=== PATIENT | male | born 1970 | race Caucasian/White ===

== ENCOUNTER 2016-07-16 02:37 | Inpatient (IN) | payer BC ==
[~2016-07-16] VITALS: Ht 180.3 cm; Wt 93.0 kg
--- NOTE | 2016-07-16 02:54 | ED.ADGEN ---
Adult General Chief Complaint Chief Complaint: ABDOMINAL PAIN HPI HPI Patient is a 45 year old and, history of hypertension, cholecystectomy, who presents to the emergency department with complaint of sudden onset of epigastric abdominal pain approximately 3 hours prior to arrival. Patient states that he had eaten a turkey sandwich around 5 hours ago, states that he began experiencing severe epigastric abdominal pain with nausea but no vomiting approximate 2 hours later. States that he tried antacids at home without relief , denies any chest pain, states he's had intermittent chest pain previously, states landed having shortness of breath, due to pain, denies any weakness in this or tingling, any similar to previously, any injuries. Patient states the pain is in the epigastric region and does radiate to his back. States that he does drink alcohol, but not on a regular basis, denies any drugs or cigarettes. Review of Systems Review of Systems Constitutional: Denies fever or chills. [] Eyes: Denies change in visual acuity. [] HENT: Denies nasal congestion or sore throat. [] Respiratory: Denies cough or shortness of breath. [] Cardiovascular: Denies chest pain or edema. [] GI: Epigastric abdominal pain with nausea, no vomiting, bloody stools or diarrhea. : Denies dysuria. [] Musculoskeletal: Denies back pain or joint pain. [] Integument: Denies rash. [] Neurologic: Denies headache, focal weakness or sensory changes. [] Endocrine: Denies polyuria or polydipsia. [] Lymphatic: Denies swollen glands. [] Psychiatric: Denies depression or anxiety. [] Current Medications Current Medications Current Medications Medications (Trade) Dose Ordered Sig/Cristiana Start Time Stop Time Status Last Admin Dose Admin Fentanyl Citrate 50 mcg 50 mcg PRN Q15MIN PRN 07/16/16 03:00 07/16/16 07:00 DC 07/16/16 05:18 50 MCG Info (Do NOT chart on this entry -- for MONITORING) 1 each PRN DAILY PRN 07/16/16 04:30 07/18/16 04:29 Iohexol (Omnipaque 300 Mg/ml) 75 ml 1X ONCE 07/16/16 04:30 07/16/16 04:31 DC 07/16/16 04:44 60 ML Ondansetron HCl (Zofran) 4 mg 1X ONCE 07/16/16 05:30 07/16/16 05:31 DC 07/16/16 05:18 4 MG Sodium Chloride (Iv Sodium Chloride 0.9% 1000ml Bag) 1,000 ml @ 1,000 mls/hr Q1H 07/16/16 03:30 07/16/16 04:29 DC 07/16/16 03:34 1,000 MLS/HR Allergies Allergies Allergies Coded Allergies Type Severity Reaction Last Updated Verified No Known Drug Allergies 07/16/16 No Physical Exam Physical Exam Constitutional: Well developed, well nourished, moderate distress secondary to abdominal pain, diaphoretic. HENT: Normocephalic, atraumatic, bilateral external ears normal, oropharynx moist, no oral exudates, nose normal. [] Eyes: PERRLA, EOMI, conjunctiva normal, no discharge. [] Neck: Normal range of motion, no tenderness, supple, no stridor. [] Cardiovascular:Heart rate regular rhythm, no murmur, S1, S2, no rubs or gallops. [] Lungs & Thorax: Bilateral breath sounds clear to auscultation, no wheezing, rhonchi, rales. No chest or crepitus or tenderness. [] Abdomen: Bowel sounds present patient with tenderness in the epigastric region, voluntary guarding, is grunting, and resisting examination no rigidity, positive for rebound in the epigastric region, no masses, no pulsatile masses. [ ] Skin: Warm, dry, no erythema, no rash. [] Back: No tenderness, no CVA tenderness. [] Extremities: No tenderness, no cyanosis, no clubbing, ROM intact, no edema. [] Neurologic: Alert and oriented X 3, normal motor function, normal sensory function, no focal deficits noted. [] Psychologic: Affect normal, judgement normal, mood normal. [] Current Patient Data Vital Signs Vital Signs Date Time Temp Pulse Resp B/P Pulse Ox O2 Delivery O2 Flow Rate FiO2 07/16/16 05:40 48 203/115 99 Room Air 07/16/16 05:18 20 07/16/16 02:37 97.8 97.8 Lab Values Laboratory Tests Test 07/16/16 03:30 07/16/16 04:00 White Blood Count 13.8x10^3/uL (4.0-11.0) H Red Blood Count 5.58x10^6/uL (4.30-5.70) Hemoglobin 16.8g/dL (13.0-17.5) Hematocrit 50.0% (39.0-53.0) Mean Corpuscular Volume 90fL (79-100) Mean Corpuscular Hemoglobin 30pg (25-35) Mean Corpuscular Hemoglobin Concent 34g/dL (31-37) Red Cell Distribution Width 13.0% (11.5-14.5) Platelet Count 219x10^3/uL (140-400) Neutrophils (%) (Auto) 86% (31-73) H Lymphocytes (%) (Auto) 9% (24-48) L Monocytes (%) (Auto) 4% (0-9) Eosinophils (%) (Auto) 0% (0-3) Basophils (%) (Auto) 1% (0-3) Neutrophils # (Auto) 11.9x10^3uL (1.8-7.7) H Lymphocytes # (Auto) 1.2x10^3/uL (1.0-4.8) Monocytes # (Auto) 0.6x10^3/uL (0.0-1.1) Eosinophils # (Auto) 0.0x10^3/uL (0.0-0.7) Basophils # (Auto) 0.1x10^3/uL (0.0-0.2) Segmented Neutrophils % 88% (35-66) H Band Neutrophils % 4% (0-9) Lymphocytes % 4% (24-48) L Monocytes % 4% (0-10) Platelet Estimate Adequate (ADEQUATE) Prothrombin Time 12.2SEC (11.7-14.0) Prothrombin Time INR 1.0 (0.8-1.1) PTT 22SEC (24-38) L Sodium Level 143mmol/L (136-145) Potassium Level 4.1mmol/L (3.5-5.1) Chloride Level 104mmol/L (98-107) Carbon Dioxide Level 25mmol/L (21-32) Anion Gap 14 (6-14) Blood Urea Nitrogen 10mg/dL (8-26) Creatinine 1.3mg/dL (0.7-1.3) Estimated GFR (Cockcroft-Gault) 59.4 BUN/Creatinine Ratio 8 (6-20) Glucose Level 167mg/dL (70-99) H Calcium Level 10.1mg/dL (8.5-10.1) Total Bilirubin 3.0mg/dL (0.2-1.0) H Aspartate Amino Transferase (AST) 282U/L (15-37) H Alanine Aminotransferase (ALT) 645U/L (16-63) H Alkaline Phosphatase 173U/L (46-116) H Troponin I Quantitative < 0.017ng/mL (0.000-0.055) Total Protein 8.3g/dL (6.4-8.2) H Albumin 5.0g/dL (3.4-5.0) Albumin/Globulin Ratio 1.5 (1.0-1.7) Lipase 296U/L (73-393) Urine Collection Type Unknown Urine Color Wirt Urine Clarity Cloudy Urine pH 6.5 Urine Specific [place] 1.025 Urine Protein Negativemg/dL (NEG-TRACE) Urine Glucose (UA) Negativemg/dL (NEG) Urine Ketones (Stick) 40mg/dL (NEG) Urine Blood Negative (NEG) Urine Nitrite Negative (NEG) Urine Bilirubin Small (NEG) Urine Urobilinogen Dipstick 2.0mg/dL (0.2 mg/dL) Urine Leukocyte Esterase Trace (NEG) Urine RBC Occ/HPF (0-2) Urine WBC Occ/HPF (0-4) Urine Squamous Epithelial Cells None/LPF Urine Amorphous Sediment Present/HPF Urine Bacteria 0/HPF (0-FEW) Urine Mucus Mod/LPF Urine Opiates Screen Neg (NEG) Urine Methadone Screen Neg (NEG) Urine Barbiturates Neg (NEG) Urine Phencyclidine Screen Neg (NEG) Urine Amphetamine/Methamphetamine Neg (NEG) Urine Benzodiazepines Screen Neg (NEG) Urine Cocaine Screen Neg (NEG) Urine Cannabinoids Screen Pos (NEG) Urine Ethyl Alcohol Neg (NEG) Laboratory Tests 07/16/16 03:30 Laboratory Tests 07/16/16 03:30 EKG EKG EC: Sinus bradycardia, heart rate 49 bpm, upright axis, QTC of 433, NH 150, QRS of 94, aside from bradycardia, no other abnormalities identified. As interpreted by me. No prior for comparison. [] Radiology/Procedures Radiology/Procedures [] [facility] [address] [place] [address] IMAGING REPORT Signed PATIENT: DUYEN MOCTEZUMA ACCOUNT: [id number] : 1970 LOCATION: ER AGE: 45 SEX: M EXAM STATUS: REG ER ORD. PHYSICIAN: ANNA BOONE DO REASON: upper abd pain x tonight; nausea PROCEDURE: ABD PELV W/ IV CONTRAST ONLY INDICATION: Abdomen pain. COMPARISON: None TECHNIQUE: Axial CT images obtained through the abdomen and pelvis. Intravenous contrast was utilized. One or more of the following individualized dose reduction techniques were utilized for this examination: 1. Automated exposure control; 2. Adjustment of the mA and/or kV according to patient size; 3. Use of iterative reconstruction technique. FINDINGS: Abdominal aorta not aneurysmal. Small hiatal hernia versus mild distension distal esophagus. Mild calcific atherosclerosis. Biliary ductal dilatation is seen post cholecystectomy. There may be some component of periportal edema. No peripancreatic edema. Spleen unremarkable. No hydronephrosis. No definite evidence of small bowel obstruction. Bladder unremarkable within limits of CT. Fat containing right inguinal hernia. There are couple of small sclerotic foci seen in the osseous structures including 1 centimeter focus in right iliac bone. Most commonly bone islands unless the patient has history of neoplasm. IMPRESSION: No dilated loops of bowel to suggest obstruction. There is dilation of the biliary tree. The patient is post cholecystectomy therefore this may be secondary to postcholecystectomy changes but this is more than typically seen. Would correlate with symptoms in the region and lab markers. A cause such is a distal stricture or stone is not excluded on this exam. If further information is desired a follow-up MRCP could be obtained to further evaluate. Intrahepatic bile duct dilation is seen although cannot exclude a portion of periportal edema. Electronically signed by: Dudley Frias (Jul 16, 2016 05:42:16) DICTATED and SIGNED BY: DUDLEY FRIAS MD DATE: 07/16/16 0542 CC: ANNA BOONE DO; NO PCP ~ Impressions: [facility] [address] [place] [address] IMAGING REPORT Signed PATIENT: DUYEN MOCTEZUMA ACCOUNT: [id number] : 1970 LOCATION: ER AGE: 45 SEX: M EXAM STATUS: REG ER ORD. PHYSICIAN: ANNA BOONE DO REASON: RUQ/epigastric pain s/p cholecystetomy PROCEDURE: ABDOMEN LTD INDICATION: Abdominal pain. COMPARISON: CT from same day TECHNIQUE: Transabdominal ultrasound images are obtained of the abdomen. FINDINGS: Post cholecystectomy Hepatic echogenicity is mildly elevated Common bile duct dilation is better seen on CT Pancreas not well seen IVC segmentally seen at liver. No right hydronephrosis. Right kidney is not well seen. IMPRESSION: The patient's biliary ductal dilatation is seen on this exam as well. Liver is mildly hyperechoic. This is a borderline finding but cannot exclude mild fatty infiltration. Electronically signed by: Dudley Frias (Jul 16, 2016 05:45:10) DICTATED and SIGNED BY: DUDLEY FRIAS MD DATE: 07/16/16 0545 CC: ANNA BOONE DO; NO PCP ~ Course & Med Decision Making Course & Med Decision Making Pertinent Labs and Imaging studies reviewed. (See chart for details) Patient status post cholecystectomy, CT of abdomen and pelvis obtained to further elucidate his symptoms, laboratory studies. Reveal biliary dilatation, with no evidence of obstruction or obvious retained stone. Laboratory studies reveal elevations of the LFTs, an elevated bilirubin area ultrasound ordered to further evaluate the area, with no new findings identified. On reevaluation patient is contained to experience significant abdominal discomfort after receiving multiple doses of narcotic medication. IV fluids also infusing. Patient is agreeable for admission to the hospital for further evaluation of his symptoms and consultation with GI. Admitted to the service of Dr. Sylvester , with bridging orders entered for consultation, nothing by mouth status, supportive management as stated, patient remained stable in the emergency department awaiting transfer to the floor. Dragon Disclaimer Dragon Disclaimer This electronic medical record was generated, in whole or in part, using a voice recognition dictation system. Departure Impression: Primary Impression: Abdominal pain Additional Impression: Elevated liver enzymes Disposition: ADMITTED INPATIENT Admitting Physician: Alessandro Sylvester Condition: IMPROVED Problem Qualifiers Primary Impression: Abdominal pain Abdominal location: upper abdomen, unspecified Qualified Code: R10.10 - Upper abdominal pain, unspecified ANNA BOONE DO Jul 16, 2016 02:54
[2016-07-16] MEDS ORDERED: IV NORMAL SALINE 1000ML BAG 1,000 ML IV SCH (03:30)
[2016-07-16] MEDS ORDERED: ONDANSETRON PF 4 MG/2 ML VIAL. IV ONE ×2 (03:30→05:30)
[2016-07-16] MEDS: FENTANYL PF 100 MCG/2 ML VIAL. IV PRN ×3 (03:34→05:18)
[2016-07-16 03:43] LABS: BASO # 0.1 x10^3/uL (0.0-0.2); BASO % 1 % (0-3); EOS % 0 % (0-3); HEMOGLOBIN 16.8 g/dL (13.0-17.5); LYMPH # 1.2 x10^3/uL (1.0-4.8); LYMPH % 9 % (24-48); MEAN CORPUSCULAR HEMOGLOBIN 30 pg (25-35); MEAN CORPUSCULAR HGB CONC 34 g/dL (31-37); MEAN CORPUSCULAR VOLUME 90 fL (79-100); MONO % 4 % (0-9); NEUT % 86 % (31-73); PLATELET COUNT 219 x10^3/uL (140-400); RED BLOOD COUNT 5.58 x10^6/uL (4.30-5.70); WHITE BLOOD COUNT 13.8 x10^3/uL (4.0-11.0)
[2016-07-16 03:52] LABS: PROTHROMBIN TIME PATIENT 12.2 SEC (11.7-14.0)
[2016-07-16 04:08] LABS: CALCIUM 10.1 mg/dL (8.5-10.1); CREATININE 1.3 mg/dL (0.7-1.3); GFR 59.4; POTASSIUM 4.1 mmol/L (3.5-5.1)
[2016-07-16 04:10] LABS: BILIRUBIN,URINE SMALL (NEG); GLUCOSE,URINE NEGATIVE (NEG); NITRITE,URINE NEGATIVE (NEG); PH,URINE 6.5; PROTEIN,URINE NEGATIVE (NEG-TRACE)
[2016-07-16 04:13] LABS: ALBUMIN/GLOBULIN RATIO 1.5 (1.0-1.7); TOTAL PROTEIN 8.3 g/dL (6.4-8.2)
[2016-07-16 04:16] LABS: BARBITURATES NEG (NEG); BENZODIAZEPINES NEG (NEG); CANNABINOIDS POS (NEG); COCAINE NEG (NEG); METHADONE NEG (NEG); OPIATES NEG (NEG); PHENCYCLIDINE NEG (NEG)
[2016-07-16 04:25] LABS: ETHANOL, URINE NEG (NEG)
[2016-07-16] MEDS ORDERED: CONTRAST GIVEN MC PRN (04:30)
[2016-07-16] MEDS ORDERED: IOHEXOL 300 MG/ML 75 ML VIAL IV ONE (04:30)
[2016-07-16 04:31] LABS: BACTERIA,URINE 0 /HPF (0-FEW); RBC,URINE OCC /HPF (0-2); WBC,URINE OCC /HPF (0-4)
--- NOTE | 2016-07-16 05:44 | RAD ---
INDICATION: Abdomen pain. COMPARISON: None TECHNIQUE: Axial CT images obtained through the abdomen and pelvis. Intravenous contrast was utilized. One or more of the following individualized dose reduction techniques were utilized for this examination: 1. Automated exposure control; 2. Adjustment of the mA and/or kV according to patient size; 3. Use of iterative reconstruction technique. FINDINGS: Abdominal aorta not aneurysmal. Small hiatal hernia versus mild distension distal esophagus. Mild calcific atherosclerosis. Biliary ductal dilatation is seen post cholecystectomy. There may be some component of periportal edema. No peripancreatic edema. Spleen unremarkable. No hydronephrosis. No definite evidence of small bowel obstruction. Bladder unremarkable within limits of CT. Fat containing right inguinal hernia. There are couple of small sclerotic foci seen in the osseous structures including 1 centimeter focus in right iliac bone. Most commonly bone islands unless the patient has history of neoplasm. IMPRESSION: No dilated loops of bowel to suggest obstruction. There is dilation of the biliary tree. The patient is post cholecystectomy therefore this may be secondary to postcholecystectomy changes but this is more than typically seen. Would correlate with symptoms in the region and lab markers. A cause such is a distal stricture or stone is not excluded on this exam. If further information is desired a follow-up MRCP could be obtained to further evaluate. Intrahepatic bile duct dilation is seen although cannot exclude a portion of periportal edema. Electronically signed by: Sunny Steele (Jul 16, 2016 05:42:16)
--- NOTE | 2016-07-16 05:46 | RAD ---
INDICATION: Abdominal pain. COMPARISON: CT from same day TECHNIQUE: Transabdominal ultrasound images are obtained of the abdomen. FINDINGS: Post cholecystectomy Hepatic echogenicity is mildly elevated Common bile duct dilation is better seen on CT Pancreas not well seen IVC segmentally seen at liver. No right hydronephrosis. Right kidney is not well seen. IMPRESSION: The patient's biliary ductal dilatation is seen on this exam as well. Liver is mildly hyperechoic. This is a borderline finding but cannot exclude mild fatty infiltration. Electronically signed by: Sunny Steele (Jul 16, 2016 05:45:10)
[2016-07-16] MEDS ORDERED: MORPHINE SULFATE 4 MG/ML DISP.SYRIN. IV/SQ PRN (06:15)
[2016-07-16 06:41] LABS: PLT ESTIMATE ADEQUATE (ADEQUATE)
[2016-07-16 07:00] VITALS: BP 135/84
[2016-07-16] MEDS ORDERED: MORPHINE SULFATE 4 MG/ML DISP.SYRIN. IV PRN ×2 (07:00→13:45)
[2016-07-16] MEDS ORDERED: ACETAMINOPHEN 325 MG TABLET. PO PRN (07:00)
[2016-07-16] MEDS ORDERED: CEFTRIAXONE 1GM IVPB FOR OMNI 50 ML IV ONE (07:00)
[2016-07-16] MEDS ORDERED: METRONIDAZOLE 500mg PREMIX 100 ML IV ONE (07:00)
[2016-07-16] MEDS ORDERED: ONDANSETRON PF 4 MG/2 ML VIAL. IV PRN ×2 (07:00→13:45)
[2016-07-16] MEDS: IV NORMAL SALINE 1000ML BAG 1,000 ML IV SCH ×3 (10:00→21:33)
--- NOTE | 2016-07-16 10:05 | RAD ---
AP portable chest radiograph 07/16/2016 Clinical History: Shortness of breath since earlier in the evening. An AP portable erect digital radiograph of the chest was obtained. No previous studies are available for comparison. The cardiac and mediastinal silhouettes are within normal limits in size and configuration. No acute pulmonary infiltrate is noted. No pneumothorax or pleural effusion is seen. Degenerative changes are seen involving the right shoulder. Impression: No acute abnormality is seen.
[2016-07-16] MEDS ORDERED: OMEP20TA63 PO (10:26)
[2016-07-16] MEDS ORDERED: ASPI-482 PO (10:26)
--- NOTE | 2016-07-16 10:36 | PDOC2 ---
CONSULT Date of Consult Date of Consult DATE: 07/16/16 TIME: 10:15 Reason for Consult Reason for Consult: Abdominal pain/elevated liver chemistries Source Source: Chart review, Patient History of Present Illness Reason for Visit: 45 y/o male who presented to ER with abdominal pain. This began about midnight and persisted roughly 6 or so hours. Currently he is pain-free and would like to eat. Pain was epigastric in location and may have radiated to back. Ultimately he did have nausea and vomiting. He feels pain was similar to what he experienced prior to cholecystectomy at (though does not recal/know if gallstones were present). History suggests he may have had MRCP and possible ERCP while at , though cannot confirm. He has had some heartburn over the past 2-3 months, worse the past 4 weeks. He has been taking OTC Prilosec at home daily. He denies dysphagia, PUD, or pancreatic history. He was told he had acute "non-A,non-B" hepatitis remotely. Per his history he had some testing at [facility] when hospitalized there indicating no HCV or HBV. Smokes some. Has drank, but not recently much. Does take NSAIDs. Denies ongoing diarrhea or constipation. He recently had an episode of rectal bleeding in toilet and on TP which resolved and has not recurred. No h/o melena, wt. loss or anorexia. GI FH is positive for mother having undergone liver transplant at ; he does not recall indication for same. Imaging here does reveal a dilated biliary system, but no calculi seen. LFT's are elevated as is bilirubin. Past Medical History Past Medical History No chronic issues. Past Surgical History Past Surgical History: Cholecystectomy Family History Family History Non-contributory GI-oliveros. Social History ALCOHOL: occassional Drugs: Marijuana (per tox screen) Current Problem List Problem List Problems Medical Problems: (1) Abdominal pain Status: Acute (2) Elevated liver enzymes Status: Acute Current Medications Current Medications Current Medications Fentanyl Citrate 50 mcg 50 mcg PRN Q15MIN PRN IV PAIN GREATER THAN 3/10 Last administered on 07/16/16t 05:18; Start 07/16/16 at 03:00; Stop 07/16/16 at 07:00; Status DC Sodium Chloride (Iv Sodium Chloride 0.9% 1000ml Bag) 1,000 ml @ 1,000 mls/hr Q1H IV Last administered on 07/16/16 03:34; Start 07/16/16 at 03:30; Stop at 04:29; Status DC Ondansetron HCl (Zofran) 4 mg 1X ONCE IV Last administered on 07/16/16 03:34; Start 07/16/16 at 03:30; Stop 07/16/16 at 03:31; Status DC Iohexol (Omnipaque 300 Mg/ml) 75 ml 1X ONCE IV Last administered on 07/16/16 04:44; Start 07/16/16 at 04:30; Stop 07/16/16 at 04:31; Status DC Info (Do NOT chart on this entry -- for MONITORING) 1 each PRN DAILY PRN MC SEE COMMENTS; Start 07/16/16 at 04:30; Stop 07/18/16 at 04:29 Ondansetron HCl (Zofran) 4 mg 1X ONCE IV Last administered on 07/16/16 05:18; Start 07/16/16 at 05:30; Stop 07/16/16 at 05:31; Status DC Morphine Sulfate 4 mg 4 mg PRN Q15MIN PRN IV/SQ PAIN GREATER THAN 3/10; Start 07/16/16 at 06:15; Stop 07/16/16 at 09:00; Status DC Ceftriaxone Sodium 50 ml @ 100 mls/hr 1X ONCE IV Last administered on 10:00; Start 07/16/16 at 07:00; Stop 07/16/16 at 07:29; Status DC Ceftriaxone Sodium 1 gm/ Sodium Chloride 50 ml @ 100 mls/hr Q24H IV ; Start 07/17/16 at 07:00 Metronidazole 100 ml @ 100 mls/hr 1X ONCE IV Last administered on 07/16/16 09 :59; Start 07/16/16 at 07:00; Stop 07/16/16 at 07:59; Status DC Metronidazole (FLAGYL 500Mmg PREMIX) 100 ml @ 100 mls/hr Q8HRS IV ; Start at 14:00 Ondansetron HCl (Zofran) 4 mg PRN Q8HRS PRN IV NAUSEA/VOMITING; Start 07/16/16 at 07:00; Stop 07/17/16 at 06:59 Morphine Sulfate 4 mg 4 mg PRN Q2HR PRN IV SEVERE PAIN; Start 07/16/16 at 07:00 ; Stop 07/17/16 at 06:59 Sodium Chloride (Iv Sodium Chloride 0.9% 1000ml Bag) 1,000 ml @ 125 mls/hr Q8H IV Last administered on 07/16/16t 10:00; Start 07/16/16 at 06:57; Stop 07/17/16 at 06:56 Acetaminophen (Tylenol) 650 mg PRN Q4HRS PRN PO FEVER; Start 07/16/16 at 07:00; Stop 07/17/16 at 06:59 Pantoprazole Sodium (Protonix) 40 mg DAILYAC PO ; Start 07/16/16 at 11:00 Allergies Allergies: Coded Allergies: No Known Drug Allergies (Unverified , 07/16/16) ROS Review of System 10-point review otherwise negative. Physical Exam General: Alert, Oriented X3, Cooperative, No acute distress Lungs: Clear to auscultation Heart: Regular rate, Normal S1, Normal S2, No murmurs Abdomen: Normal bowel sounds, Soft, No tenderness, No hepatosplenomegaly, No masses Extremities: No cyanosis, No edema Skin: No significant lesion Neuro: Normal speech, Strength at 5/5 X4 ext, Normal tone, Sensation intact, Cranial nerves 3-12 NL, Reflexes 2+ Psych/Mental Status: Mental status NL, Mood NL MUSCULOSKELETAL: No deformity, No swelling Vitals VITALS Vital Signs Date Time Temp Pulse Resp B/P Pulse Ox O2 Delivery O2 Flow Rate FiO2 07/16/16 07:00 97.5 72 18 135/84 96 Room Air 97.5 Labs Labs Laboratory Tests Test 07/16/16 03:30 07/16/16 04:00 White Blood Count 13.8x10^3/uL (4.0-11.0) Red Blood Count 5.58x10^6/uL (4.30-5.70) Hemoglobin 16.8g/dL (13.0-17.5) Hematocrit 50.0% (39.0-53.0) Mean Corpuscular Volume 90fL (79-100) Mean Corpuscular Hemoglobin 30pg (25-35) Mean Corpuscular Hemoglobin Concent 34g/dL (31-37) Red Cell Distribution Width 13.0% (11.5-14.5) Platelet Count 219x10^3/uL (140-400) Neutrophils (%) (Auto) 86% (31-73) Lymphocytes (%) (Auto) 9% (24-48) Monocytes (%) (Auto) 4% (0-9) Eosinophils (%) (Auto) 0% (0-3) Basophils (%) (Auto) 1% (0-3) Neutrophils # (Auto) 11.9x10^3uL (1.8-7.7) Lymphocytes # (Auto) 1.2x10^3/uL (1.0-4.8) Monocytes # (Auto) 0.6x10^3/uL (0.0-1.1) Eosinophils # (Auto) 0.0x10^3/uL (0.0-0.7) Basophils # (Auto) 0.1x10^3/uL (0.0-0.2) Segmented Neutrophils % 88% (35-66) Band Neutrophils % 4% (0-9) Lymphocytes % 4% (24-48) Monocytes % 4% (0-10) Platelet Estimate Adequate (ADEQUATE) Prothrombin Time 12.2SEC (11.7-14.0) Prothromb Time International Ratio 1.0 (0.8-1.1) Activated Partial Thromboplast Time 22SEC (24-38) Sodium Level 143mmol/L (136-145) Potassium Level 4.1mmol/L (3.5-5.1) Chloride Level 104mmol/L (98-107) Carbon Dioxide Level 25mmol/L (21-32) Anion Gap 14 (6-14) Blood Urea Nitrogen 10mg/dL (8-26) Creatinine 1.3mg/dL (0.7-1.3) Estimated GFR (Cockcroft-Gault) 59.4 BUN/Creatinine Ratio 8 (6-20) Glucose Level 167mg/dL (70-99) Calcium Level 10.1mg/dL (8.5-10.1) Total Bilirubin 3.0mg/dL (0.2-1.0) Aspartate Amino Transf (AST/SGOT) 282U/L (15-37) Alanine Aminotransferase (ALT/SGPT) 645U/L (16-63) Alkaline Phosphatase 173U/L (46-116) Troponin I Quantitative < 0.017ng/mL (0.000-0.055) Total Protein 8.3g/dL (6.4-8.2) Albumin 5.0g/dL (3.4-5.0) Albumin/Globulin Ratio 1.5 (1.0-1.7) Lipase 296U/L (73-393) Urine Collection Type Unknown Urine Color [place]ondera Urine Clarity Cloudy Urine pH 6.5 Urine Specific [place] 1.025 Urine Protein Negativemg/dL (NEG-TRACE) Urine Glucose (UA) Negativemg/dL (NEG) Urine Ketones (Stick) 40mg/dL (NEG) Urine Blood Negative (NEG) Urine Nitrite Negative (NEG) Urine Bilirubin Small (NEG) Urine Urobilinogen Dipstick 2.0mg/dL (0.2 mg/dL) Urine Leukocyte Esterase Trace (NEG) Urine RBC Occ/HPF (0-2) Urine WBC Occ/HPF (0-4) Urine Squamous Epithelial Cells None/LPF Urine Amorphous Sediment Present/HPF Urine Bacteria 0/HPF (0-FEW) Urine Mucus Mod/LPF Urine Opiates Screen Neg (NEG) Urine Methadone Screen Neg (NEG) Urine Barbiturates Neg (NEG) Urine Phencyclidine Screen Neg (NEG) Urine Amphetamine/Methamphetamine Neg (NEG) Urine Benzodiazepines Screen Neg (NEG) Urine Cocaine Screen Neg (NEG) Urine Cannabinoids Screen Pos (NEG) Urine Ethyl Alcohol Neg (NEG) Laboratory Tests Test 07/16/16 03:30 07/16/16 04:00 White Blood Count 13.8x10^3/uL (4.0-11.0) Red Blood Count 5.58x10^6/uL (4.30-5.70) Hemoglobin 16.8g/dL (13.0-17.5) Hematocrit 50.0% (39.0-53.0) Mean Corpuscular Volume 90fL (79-100) Mean Corpuscular Hemoglobin 30pg (25-35) Mean Corpuscular Hemoglobin Concent 34g/dL (31-37) Red Cell Distribution Width 13.0% (11.5-14.5) Platelet Count 219x10^3/uL (140-400) Neutrophils (%) (Auto) 86% (31-73) Lymphocytes (%) (Auto) 9% (24-48) Monocytes (%) (Auto) 4% (0-9) Eosinophils (%) (Auto) 0% (0-3) Basophils (%) (Auto) 1% (0-3) Neutrophils # (Auto) 11.9x10^3uL (1.8-7.7) Lymphocytes # (Auto) 1.2x10^3/uL (1.0-4.8) Monocytes # (Auto) 0.6x10^3/uL (0.0-1.1) Eosinophils # (Auto) 0.0x10^3/uL (0.0-0.7) Basophils # (Auto) 0.1x10^3/uL (0.0-0.2) Segmented Neutrophils % 88% (35-66) Band Neutrophils % 4% (0-9) Lymphocytes % 4% (24-48) Monocytes % 4% (0-10) Platelet Estimate Adequate (ADEQUATE) Prothrombin Time 12.2SEC (11.7-14.0) Prothromb Time International Ratio 1.0 (0.8-1.1) Activated Partial Thromboplast Time 22SEC (24-38) Sodium Level 143mmol/L (136-145) Potassium Level 4.1mmol/L (3.5-5.1) Chloride Level 104mmol/L (98-107) Carbon Dioxide Level 25mmol/L (21-32) Anion Gap 14 (6-14) Blood Urea Nitrogen 10mg/dL (8-26) Creatinine 1.3mg/dL (0.7-1.3) Estimated GFR (Cockcroft-Gault) 59.4 BUN/Creatinine Ratio 8 (6-20) Glucose Level 167mg/dL (70-99) Calcium Level 10.1mg/dL (8.5-10.1) Total Bilirubin 3.0mg/dL (0.2-1.0) Aspartate Amino Transf (AST/SGOT) 282U/L (15-37) Alanine Aminotransferase (ALT/SGPT) 645U/L (16-63) Alkaline Phosphatase 173U/L (46-116) Troponin I Quantitative < 0.017ng/mL (0.000-0.055) Total Protein 8.3g/dL (6.4-8.2) Albumin 5.0g/dL (3.4-5.0) Albumin/Globulin Ratio 1.5 (1.0-1.7) Lipase 296U/L (73-393) Urine Collection Type Unknown Urine Color [place]ondera Urine Clarity Cloudy Urine pH 6.5 Urine Specific [place] 1.025 Urine Protein Negativemg/dL (NEG-TRACE) Urine Glucose (UA) Negativemg/dL (NEG) Urine Ketones (Stick) 40mg/dL (NEG) Urine Blood Negative (NEG) Urine Nitrite Negative (NEG) Urine Bilirubin Small (NEG) Urine Urobilinogen Dipstick 2.0mg/dL (0.2 mg/dL) Urine Leukocyte Esterase Trace (NEG) Urine RBC Occ/HPF (0-2) Urine WBC Occ/HPF (0-4) Urine Squamous Epithelial Cells None/LPF Urine Amorphous Sediment Present/HPF Urine Bacteria 0/HPF (0-FEW) Urine Mucus Mod/LPF Urine Opiates Screen Neg (NEG) Urine Methadone Screen Neg (NEG) Urine Barbiturates Neg (NEG) Urine Phencyclidine Screen Neg (NEG) Urine Amphetamine/Methamphetamine Neg (NEG) Urine Benzodiazepines Screen Neg (NEG) Urine Cocaine Screen Neg (NEG) Urine Cannabinoids Screen Pos (NEG) Urine Ethyl Alcohol Neg (NEG) Images Images CT and sono reviewed. Assessment/Plan Assessment/Plan IMP: 1. Abdominal pain/elevated LFT's and bilirubin. This would suggest biliary origin. Possibilities would include retained stone after yanely (if had stones?), biliary dyskinesia/SOD, or rarely migration of clip from cystic duct into CBD (doubtful). 2. H/o NANB hepatitis; this was largely a grab-bag diagnosis before we had testing for HCV. If truly tested negative for HCV, may have been mono or CMV or other hepatotrophic virus. 3. FH of end-stage liver disease requiring transplant--nature of this unclear from history. 4. S/p yanely, indication uncertain. 5. Recent minor hematochezia; history suggests likely hemorrhoidal. 6. Heartburn. REC: 1. PPI 2. Trend LFT's 3. MRCP 4. Ask for [facility] records re: yanely and any associated w/u. 5. Would merit outpatient colonoscopy re: the bleeding. 6. Would give no more than clear liquids po at this point. 7. Check HCV, HBV serologies. --other pending above. Thank you for allowing me to assist in the care of this patient. Please call if questions. ALONSO BENTLEY MD Jul 16, 2016 10:36
--- NOTE | 2016-07-16 10:39 | ACF ---
Admission Forms Criteria GALLBLADDER OR BILE DUCT INFLAMMATION OR STONE Clinical Indications for Admission to Inpatient Care ( Place 'X' for any and all applicable criteria): Admission is indicated for patients with ANY ONE of the following(1)(2)(3)(4)(5) : [ ]I. Acute cholecystitis as indicated by ALL of the following: [ ]a) Right upper quadrant pain, mass, or tenderness [ ]b) Systemic signs of inflammation indicated by ANY ONE of the following: [ ]i) Fever [ ]ii) C-reactive protein level greater than 10 mg/L (95 nmol/L) [ ]iii) White blood cell count greater than 10,000/mm3 (10 x109/L) or less than 4000/mm3 (4 x109/L) [ ]II. Inpatient admission required rather than observation care (Also use Gallbladder or Bile Duct Inflammation or Stone: Observation Care as appropriate) because of ANY ONE of the following: [ ]a) Common bile duct obstruction diagnosed [ ]b) Vomiting that is severe or persistent [ ]c) Severe pain requiring acute inpatient management [ ]d) Signs of intestinal obstruction or peritonitis [A] [ ]e) Severe electrolyte abnormalities requiring inpatient care [ ]f) Absent bowel sounds with complete ileus(8) [ ]g) Hemodynamic instability [ ]h) High fever or infection requiring inpatient admission as indicated by ANY ONE of the following (9): [ ]1) Appropriate outpatient or observation care antimicrobial Treatment. unavailable, not effective, or not feasible [ ]2) Temperature greater than 104.9 degrees F (40.5 degrees C) (oral) [ ]3) Temperature greater than 103.1 degrees F (39.5 degrees C) (oral) or less than 96.8 degrees F (36 degrees C) (rectal) that does not respond to all emergency treatment measures [ ]4) Documented bacteremia [ ]i) IV fluid to replace significant ongoing losses (greater than 3 L/m2 per day) [ ]j) Percutaneous or open drainage (eg, abscess, biliary tract) procedures [ ]k) Immediate inpatient surgery [ ]l) Other condition, treatment or monitoring requiring inpatient admission [X]III. Acute cholangitis as indicated by ALL of the following(9)(10): [X]a) Systemic signs of inflammation indicated by ANY ONE of the following: [ ]i) Fever [ ]ii) C-reactive protein level greater than 10 mg/L (95 nmol /L) [X]iii) White blood cell count greater than 10,000/mm3 (10 x109/L) or less than 4000/mm3 (4 x109/L) [X]b) Evidence of common bile duct disease indicated by ANY ONE of the following: [X]i) Total serum bilirubin level greater than or equal to 2 mg/dL (34 micromoles/L) [ ]ii) Liver function test (alkaline phosphatase (ALP), r- glutamyltransferase (GGT), aspartate aminotransferase (AST), or alanine aminotransferase (ALT)) greater than 1.5 times the upper limit of normal[B] [ ]iii) Hepatobiliary imaging showing biliary dilatation or evidence of etiology (eg, stricture, stone, previously placed stent) Extended stay beyond goal length of stay may be needed for (1)(2)): [ ]a) Bacteremia or Hemodynamic instability [ ]b) Cholecystectomy [ ]c) Other surgical procedure(24) [ ]d) Percutaneous or endoscopic ultrasound-guided cholecystostomy The original [facility] content created by [facility] has been revised. The portions of the content which have been revised are identified through the use of italic text or in bold, and [facility] has neither reviewed nor approved the modified material. All other unmodified content is copyright [facility]. Please see references footnoted in the original [facility] edition 2016 Admission Criteria Met?: Yes FABIO BLANCHARD Jul 16, 2016 10:39
[2016-07-16 11:00] VITALS: BP 134/81
[2016-07-16] MEDS: PANTOPRAZOLE 40 MG TABLET. PO SCH (11:00)
--- NOTE | 2016-07-16 13:43 | PDOC1 ---
History and Physical Date of Admission Date of Admission 07/16/16 Identification/Chief Complaint Chief Complaint abd pain, N/V Problems: Source Source: Chart review, Patient History of Present Illness History of Present Illness Patient is a 45 year old and, history of hypertension, cholecystectomy from , comes for abd pain. He has had epigastric abd pain for about 6ms, getting worse recently, usually happens after eating. He also has N/V yesterday, no constipation or diarrhea. Pain free now with meds. He has no PCP now, not taking any meds. He said he knew his LFT was high 20years ago in , but was told "non a, non b" hepatitis. States that he does drink alcohol, but not on a regular basis, non smoking, + marijuana CT showed dilated biliary tree. taking NSAIDS often Past Medical History Cardiovascular: HTN Past Surgical History Past Surgical History: Cholecystectomy Family History Family History FH of end-stage liver disease requiring transplant Social History Smoke: No ALCOHOL: social Drugs: Marijuana (per tox screen) Current Problem List Problem List Problems Medical Problems: (1) Abdominal pain Status: Acute (2) Elevated liver enzymes Status: Acute Current Medications Current Medications Current Medications Medications (Trade) Dose Ordered Sig/Cristiana Start Time Stop Time Status Last Admin Dose Admin Acetaminophen (Tylenol) 650 mg PRN Q4HRS PRN 07/16/16 07:00 07/17/16 06:59 Ceftriaxone Sodium 1 gm/ Sodium Chloride 50 ml @ 100 mls/hr Q24H 07/17/16 07:00 Ceftriaxone Sodium 50 ml @ 100 mls/hr 1X ONCE 07/16/16 07:00 07/16/16 07:29 DC 07/16/16 10:00 100 MLS/HR Fentanyl Citrate (Fentanyl 2ml Vial) 50 mcg PRN Q15MIN PRN 07/16/16 03:00 07/16/16 07:00 DC 07/16/16 05:18 50 MCG Info (Do NOT chart on this entry -- for MONITORING) 1 each PRN DAILY PRN 07/16/16 04:30 07/18/16 04:29 Iohexol (Omnipaque 300 Mg/ml) 75 ml 1X ONCE 07/16/16 04:30 07/16/16 04:31 DC 07/16/16 04:44 60 ML Metronidazole (FLAGYL 500Mmg PREMIX) 100 ml @ 100 mls/hr Q8HRS 07/16/16 14:00 Morphine Sulfate 4 mg 4 mg PRN Q2HR PRN 07/16/16 07:00 07/17/16 06:59 Ondansetron HCl (Zofran) 4 mg PRN Q8HRS PRN 07/16/16 07:00 07/17/16 06:59 Ondansetron HCl 4 mg 4 mg 1X ONCE 07/16/16 05:30 07/16/16 05:31 DC 07/16/16 05:18 4 MG Pantoprazole Sodium (Protonix) 40 mg DAILYAC 07/16/16 11:00 Sodium Chloride (Iv Sodium Chloride 0.9% 1000ml Bag) 1,000 ml @ 125 mls/hr Q8H 07/16/16 06:57 07/17/16 06:56 07/16/16 10:00 125 MLS/HR Allergies Allergies Allergies Coded Allergies Type Severity Reaction Last Updated Verified No Known Drug Allergies 07/16/16 No ROS Review of System CONSTITUTIONAL: No fever or chills EYES: No recent changes SKIN: No rash or itching CARDIOVASCULAR: No chest pain, syncope, palpitations, or edema RESPIRATORY: No SOB or cough GASTROINTESTINAL: No nausea, vomiting or abdominal pain NEUROLOGICAL: No headaches or weakness ENDOCRINE: No cold or heat intolerance GENITOURINARY: No urgency or frequency of urination MUSCULOSKELETAL: No back pain or joint pain LYMPHATICS: No enlarged lymph nodes PSYCHIATRIC: No anxiety or depression Physical Exam Physical Exam GEN.: No apparent distress. Alert and oriented. HEENT: Head is normocephalic, atraumatic NECK: Supple. LUNGS: Clear to auscultation. HEART: RRR, S1, S2 present. Peripheral pulses intact ABDOMEN: Soft, nontender. Positive bowel sounds. EXTREMITIES: Without any cyanosis. NEUROLOGIC: Normal speech, normal tone PSYCHIATRIC: Normal affect, normal mood. SKIN: No ulcerations Vitals Vitals Vital Signs Date Time Temp Pulse Resp B/P Pulse Ox O2 Delivery O2 Flow Rate FiO2 07/16/16 11:00 97.7 87 18 134/81 97 Room Air 97.7 Labs Labs Laboratory Tests Test 07/16/16 03:30 07/16/16 04:00 White Blood Count 13.8x10^3/uL (4.0-11.0) Red Blood Count 5.58x10^6/uL (4.30-5.70) Hemoglobin 16.8g/dL (13.0-17.5) Hematocrit 50.0% (39.0-53.0) Mean Corpuscular Volume 90fL (79-100) Mean Corpuscular Hemoglobin 30pg (25-35) Mean Corpuscular Hemoglobin Concent 34g/dL (31-37) Red Cell Distribution Width 13.0% (11.5-14.5) Platelet Count 219x10^3/uL (140-400) Neutrophils (%) (Auto) 86% (31-73) Lymphocytes (%) (Auto) 9% (24-48) Monocytes (%) (Auto) 4% (0-9) Eosinophils (%) (Auto) 0% (0-3) Basophils (%) (Auto) 1% (0-3) Neutrophils # (Auto) 11.9x10^3uL (1.8-7.7) Lymphocytes # (Auto) 1.2x10^3/uL (1.0-4.8) Monocytes # (Auto) 0.6x10^3/uL (0.0-1.1) Eosinophils # (Auto) 0.0x10^3/uL (0.0-0.7) Basophils # (Auto) 0.1x10^3/uL (0.0-0.2) Segmented Neutrophils % 88% (35-66) Band Neutrophils % 4% (0-9) Lymphocytes % 4% (24-48) Monocytes % 4% (0-10) Platelet Estimate Adequate (ADEQUATE) Prothrombin Time 12.2SEC (11.7-14.0) Prothromb Time International Ratio 1.0 (0.8-1.1) Activated Partial Thromboplast Time 22SEC (24-38) Sodium Level 143mmol/L (136-145) Potassium Level 4.1mmol/L (3.5-5.1) Chloride Level 104mmol/L (98-107) Carbon Dioxide Level 25mmol/L (21-32) Anion Gap 14 (6-14) Blood Urea Nitrogen 10mg/dL (8-26) Creatinine 1.3mg/dL (0.7-1.3) Estimated GFR (Cockcroft-Gault) 59.4 BUN/Creatinine Ratio 8 (6-20) Glucose Level 167mg/dL (70-99) Calcium Level 10.1mg/dL (8.5-10.1) Total Bilirubin 3.0mg/dL (0.2-1.0) Aspartate Amino Transf (AST/SGOT) 282U/L (15-37) Alanine Aminotransferase (ALT/SGPT) 645U/L (16-63) Alkaline Phosphatase 173U/L (46-116) Troponin I Quantitative < 0.017ng/mL (0.000-0.055) Total Protein 8.3g/dL (6.4-8.2) Albumin 5.0g/dL (3.4-5.0) Albumin/Globulin Ratio 1.5 (1.0-1.7) Lipase 296U/L (73-393) Urine Collection Type Unknown Urine Color [place] Urine Clarity Cloudy Urine pH 6.5 Urine Specific [place] 1.025 Urine Protein Negativemg/dL (NEG-TRACE) Urine Glucose (UA) Negativemg/dL (NEG) Urine Ketones (Stick) 40mg/dL (NEG) Urine Blood Negative (NEG) Urine Nitrite Negative (NEG) Urine Bilirubin Small (NEG) Urine Urobilinogen Dipstick 2.0mg/dL (0.2 mg/dL) Urine Leukocyte Esterase Trace (NEG) Urine RBC Occ/HPF (0-2) Urine WBC Occ/HPF (0-4) Urine Squamous Epithelial Cells None/LPF Urine Amorphous Sediment Present/HPF Urine Bacteria 0/HPF (0-FEW) Urine Mucus Mod/LPF Urine Opiates Screen Neg (NEG) Urine Methadone Screen Neg (NEG) Urine Barbiturates Neg (NEG) Urine Phencyclidine Screen Neg (NEG) Urine Amphetamine/Methamphetamine Neg (NEG) Urine Benzodiazepines Screen Neg (NEG) Urine Cocaine Screen Neg (NEG) Urine Cannabinoids Screen Pos (NEG) Urine Ethyl Alcohol Neg (NEG) Laboratory Tests Test 07/16/16 03:30 07/16/16 04:00 White Blood Count 13.8x10^3/uL (4.0-11.0) Red Blood Count 5.58x10^6/uL (4.30-5.70) Hemoglobin 16.8g/dL (13.0-17.5) Hematocrit 50.0% (39.0-53.0) Mean Corpuscular Volume 90fL (79-100) Mean Corpuscular Hemoglobin 30pg (25-35) Mean Corpuscular Hemoglobin Concent 34g/dL (31-37) Red Cell Distribution Width 13.0% (11.5-14.5) Platelet Count 219x10^3/uL (140-400) Neutrophils (%) (Auto) 86% (31-73) Lymphocytes (%) (Auto) 9% (24-48) Monocytes (%) (Auto) 4% (0-9) Eosinophils (%) (Auto) 0% (0-3) Basophils (%) (Auto) 1% (0-3) Neutrophils # (Auto) 11.9x10^3uL (1.8-7.7) Lymphocytes # (Auto) 1.2x10^3/uL (1.0-4.8) Monocytes # (Auto) 0.6x10^3/uL (0.0-1.1) Eosinophils # (Auto) 0.0x10^3/uL (0.0-0.7) Basophils # (Auto) 0.1x10^3/uL (0.0-0.2) Segmented Neutrophils % 88% (35-66) Band Neutrophils % 4% (0-9) Lymphocytes % 4% (24-48) Monocytes % 4% (0-10) Platelet Estimate Adequate (ADEQUATE) Prothrombin Time 12.2SEC (11.7-14.0) Prothromb Time International Ratio 1.0 (0.8-1.1) Activated Partial Thromboplast Time 22SEC (24-38) Sodium Level 143mmol/L (136-145) Potassium Level 4.1mmol/L (3.5-5.1) Chloride Level 104mmol/L (98-107) Carbon Dioxide Level 25mmol/L (21-32) Anion Gap 14 (6-14) Blood Urea Nitrogen 10mg/dL (8-26) Creatinine 1.3mg/dL (0.7-1.3) Estimated GFR (Cockcroft-Gault) 59.4 BUN/Creatinine Ratio 8 (6-20) Glucose Level 167mg/dL (70-99) Calcium Level 10.1mg/dL (8.5-10.1) Total Bilirubin 3.0mg/dL (0.2-1.0) Aspartate Amino Transf (AST/SGOT) 282U/L (15-37) Alanine Aminotransferase (ALT/SGPT) 645U/L (16-63) Alkaline Phosphatase 173U/L (46-116) Troponin I Quantitative < 0.017ng/mL (0.000-0.055) Total Protein 8.3g/dL (6.4-8.2) Albumin 5.0g/dL (3.4-5.0) Albumin/Globulin Ratio 1.5 (1.0-1.7) Lipase 296U/L (73-393) Urine Collection Type Unknown Urine Color [place] Urine Clarity Cloudy Urine pH 6.5 Urine Specific [place] 1.025 Urine Protein Negativemg/dL (NEG-TRACE) Urine Glucose (UA) Negativemg/dL (NEG) Urine Ketones (Stick) 40mg/dL (NEG) Urine Blood Negative (NEG) Urine Nitrite Negative (NEG) Urine Bilirubin Small (NEG) Urine Urobilinogen Dipstick 2.0mg/dL (0.2 mg/dL) Urine Leukocyte Esterase Trace (NEG) Urine RBC Occ/HPF (0-2) Urine WBC Occ/HPF (0-4) Urine Squamous Epithelial Cells None/LPF Urine Amorphous Sediment Present/HPF Urine Bacteria 0/HPF (0-FEW) Urine Mucus Mod/LPF Urine Opiates Screen Neg (NEG) Urine Methadone Screen Neg (NEG) Urine Barbiturates Neg (NEG) Urine Phencyclidine Screen Neg (NEG) Urine Amphetamine/Methamphetamine Neg (NEG) Urine Benzodiazepines Screen Neg (NEG) Urine Cocaine Screen Neg (NEG) Urine Cannabinoids Screen Pos (NEG) Urine Ethyl Alcohol Neg (NEG) VTE Prophylaxis Ordered VTE Prophylaxis Devices: Yes VTE Pharmacological Prophylaxi: Yes Assessment/Plan Assessment/Plan 1. epigastric abd pain with N/V 2/2 gastritis vs biliary origin with high LFT 2. H/O DUNG hepatitis 3. s/o cholecystectomy, indication uncertain 4. HTN 5. GERD 6. Recent minor hematochezia; history suggests likely hemorrhoidal. PLAN: 1. FU WITH GI, MRCP today 2. protonix 3. clear liquid diet 4. check LFT, Hepatitis panel dvt ppx KEIRY PARIKH MD Jul 16, 2016 13:42
[2016-07-16] MEDS: METRONIDAZOLE 500mg PREMIX 100 ML IV SCH ×2 (14:35→21:32)
--- NOTE | 2016-07-16 14:56 | EKG ---
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
[2016-07-16 15:00] VITALS: BP 124/75
[2016-07-16 19:00] VITALS: BP 136/86
[2016-07-16] MEDS: ACETAMINOPHEN 325 MG TABLET. PO PRN (19:38)
[2016-07-16 23:00] VITALS: BP 126/84
[2016-07-17] VITALS (7 sets, daily range): BP systolic 125–145; BP diastolic 86–92
[2016-07-17 03:15] LABS: HEP A IGM ABDY Negative (Negative)
[2016-07-17] MEDS: ACETAMINOPHEN 325 MG TABLET. PO PRN ×2 (03:19→14:05)
[2016-07-17] MEDS: CEFTRIAXONE SODIUM 1 GM in IV NORMAL SALINE 50ML 50 ML IV SCH (06:00)
[2016-07-17] MEDS: METRONIDAZOLE 500mg PREMIX 100 ML IV SCH ×3 (06:00→21:50)
[2016-07-17 06:27] LABS: BASO % 0 % (0-3); EOS % 1 % (0-3); HEMATOCRIT 44.8 % (39.0-53.0); HEMOGLOBIN 15.1 g/dL (13.0-17.5); LYMPH # 1.4 x10^3/uL (1.0-4.8); LYMPH % 12 % (24-48); MEAN CORPUSCULAR HEMOGLOBIN 30 pg (25-35); MEAN CORPUSCULAR HGB CONC 34 g/dL (31-37); MEAN CORPUSCULAR VOLUME 89 fL (79-100); MONO % 12 % (0-9); NEUT % 75 % (31-73); PLATELET COUNT 177 x10^3/uL (140-400); RED BLOOD COUNT 5.04 x10^6/uL (4.30-5.70); RED CELL DISTRIBUTION WIDTH 13.2 % (11.5-14.5); WHITE BLOOD COUNT 12.1 x10^3/uL (4.0-11.0)
[2016-07-17 06:44] LABS: CALCIUM 8.4 mg/dL (8.5-10.1); CREATININE 1.2 mg/dL (0.7-1.3); GFR 65.2; POTASSIUM 3.7 mmol/L (3.5-5.1)
[2016-07-17 06:45] LABS: ALBUMIN 3.5 g/dL (3.4-5.0); DIRECT BILIRUBIN 4.1 mg/dL (0.0-0.2); TOTAL BILIRUBIN 5.9 mg/dL (0.2-1.0); TOTAL PROTEIN 6.1 g/dL (6.4-8.2)
[2016-07-17] MEDS: PANTOPRAZOLE 40 MG TABLET. PO SCH (09:39)
[2016-07-17] MEDS: ENOXAPARIN 40 MG/0.4 ML DISP.SYRIN. SQ SCH (09:40)
--- NOTE | 2016-07-17 13:52 | PDOC ---
G I PROGRESS NOTE Subjective No major complaints. Objective Reviewed records from : -mother had PBC -he had stones in GB and CBD with ERCP after yanely in 2003 -presented to with similar to now picture in 2010; concern on imaging for PSC , but at ERCP, normal ducts and no stones. -multiple serologies at in 2010 negative except low ceruloplasmin; couldn't find a 24-hour urine copper or serum copper. Physical Exam Lungs clear. RRR Abdomen soft, not tender nor distended. Review of Relevant I have reviewed the following items binh (where applicable) has been applied. Labs Laboratory Tests Test 07/16/16 03:30 07/16/16 04:00 07/17/16 05:45 White Blood Count 13.8x10^3/uL (4.0-11.0) 12.1x10^3/uL (4.0-11.0) Red Blood Count 5.58x10^6/uL (4.30-5.70) 5.04x10^6/uL (4.30-5.70) Hemoglobin 16.8g/dL (13.0-17.5) 15.1g/dL (13.0-17.5) Hematocrit 50.0% (39.0-53.0) 44.8% (39.0-53.0) Mean Corpuscular Volume 90fL (79-100) 89fL (79-100) Mean Corpuscular Hemoglobin 30pg (25-35) 30pg (25-35) Mean Corpuscular Hemoglobin Concent 34g/dL (31-37) 34g/dL (31-37) Red Cell Distribution Width 13.0% (11.5-14.5) 13.2% (11.5-14.5) Platelet Count 219x10^3/uL (140-400) 177x10^3/uL (140-400) Neutrophils (%) (Auto) 86% (31-73) 75% (31-73) Lymphocytes (%) (Auto) 9% (24-48) 12% (24-48) Monocytes (%) (Auto) 4% (0-9) 12% (0-9) Eosinophils (%) (Auto) 0% (0-3) 1% (0-3) Basophils (%) (Auto) 1% (0-3) 0% (0-3) Neutrophils # (Auto) 11.9x10^3uL (1.8-7.7) 9.0x10^3uL (1.8-7.7) Lymphocytes # (Auto) 1.2x10^3/uL (1.0-4.8) 1.4x10^3/uL (1.0-4.8) Monocytes # (Auto) 0.6x10^3/uL (0.0-1.1) 1.5x10^3/uL (0.0-1.1) Eosinophils # (Auto) 0.0x10^3/uL (0.0-0.7) 0.1x10^3/uL (0.0-0.7) Basophils # (Auto) 0.1x10^3/uL (0.0-0.2) 0.0x10^3/uL (0.0-0.2) Segmented Neutrophils % 88% (35-66) Band Neutrophils % 4% (0-9) Lymphocytes % 4% (24-48) Monocytes % 4% (0-10) Platelet Estimate Adequate (ADEQUATE) Prothrombin Time 12.2SEC (11.7-14.0) Prothromb Time International Ratio 1.0 (0.8-1.1) Activated Partial Thromboplast Time 22SEC (24-38) Sodium Level 143mmol/L (136-145) 141mmol/L (136-145) Potassium Level 4.1mmol/L (3.5-5.1) 3.7mmol/L (3.5-5.1) Chloride Level 104mmol/L (98-107) 105mmol/L (98-107) Carbon Dioxide Level 25mmol/L (21-32) 27mmol/L (21-32) Anion Gap 14 (6-14) 9 (6-14) Blood Urea Nitrogen 10mg/dL (8-26) 7mg/dL (8-26) Creatinine 1.3mg/dL (0.7-1.3) 1.2mg/dL (0.7-1.3) Estimated GFR (Cockcroft-Gault) 59.4 65.2 BUN/Creatinine Ratio 8 (6-20) Glucose Level 167mg/dL (70-99) 103mg/dL (70-99) Calcium Level 10.1mg/dL (8.5-10.1) 8.4mg/dL (8.5-10.1) Total Bilirubin 3.0mg/dL (0.2-1.0) 5.9mg/dL (0.2-1.0) Aspartate Amino Transf (AST/SGOT) 282U/L (15-37) 204U/L (15-37) Alanine Aminotransferase (ALT/SGPT) 645U/L (16-63) 611U/L (16-63) Alkaline Phosphatase 173U/L (46-116) 150U/L (46-116) Troponin I Quantitative < 0.017ng/mL (0.000-0.055) Total Protein 8.3g/dL (6.4-8.2) 6.1g/dL (6.4-8.2) Albumin 5.0g/dL (3.4-5.0) 3.5g/dL (3.4-5.0) Albumin/Globulin Ratio 1.5 (1.0-1.7) Lipase 296U/L (73-393) Hepatitis A IgM Antibody Negative (Negative) Hepatitis B Surface Antigen Negative (Negative) Hepatitis B Core IgM Antibody Negative (Negative) Hepatitis C Antibody <0.1s/co ratio (0.0-0.9) Urine Collection Type Unknown Urine Color [place] Urine Clarity Cloudy Urine pH 6.5 Urine Specific [place] 1.025 Urine Protein Negativemg/dL (NEG-TRACE) Urine Glucose (UA) Negativemg/dL (NEG) Urine Ketones (Stick) 40mg/dL (NEG) Urine Blood Negative (NEG) Urine Nitrite Negative (NEG) Urine Bilirubin Small (NEG) Urine Urobilinogen Dipstick 2.0mg/dL (0.2 mg/dL) Urine Leukocyte Esterase Trace (NEG) Urine RBC Occ/HPF (0-2) Urine WBC Occ/HPF (0-4) Urine Squamous Epithelial Cells None/LPF Urine Amorphous Sediment Present/HPF Urine Bacteria 0/HPF (0-FEW) Urine Mucus Mod/LPF Urine Opiates Screen Neg (NEG) Urine Methadone Screen Neg (NEG) Urine Barbiturates Neg (NEG) Urine Phencyclidine Screen Neg (NEG) Urine Amphetamine/Methamphetamine Neg (NEG) Urine Benzodiazepines Screen Neg (NEG) Urine Cocaine Screen Neg (NEG) Urine Cannabinoids Screen Pos (NEG) Urine Ethyl Alcohol Neg (NEG) Direct Bilirubin 4.1mg/dL (0.0-0.2) Laboratory Tests Test 07/17/16 05:45 White Blood Count 12.1x10^3/uL (4.0-11.0) Red Blood Count 5.04x10^6/uL (4.30-5.70) Hemoglobin 15.1g/dL (13.0-17.5) Hematocrit 44.8% (39.0-53.0) Mean Corpuscular Volume 89fL (79-100) Mean Corpuscular Hemoglobin 30pg (25-35) Mean Corpuscular Hemoglobin Concent 34g/dL (31-37) Red Cell Distribution Width 13.2% (11.5-14.5) Platelet Count 177x10^3/uL (140-400) Neutrophils (%) (Auto) 75% (31-73) Lymphocytes (%) (Auto) 12% (24-48) Monocytes (%) (Auto) 12% (0-9) Eosinophils (%) (Auto) 1% (0-3) Basophils (%) (Auto) 0% (0-3) Neutrophils # (Auto) 9.0x10^3uL (1.8-7.7) Lymphocytes # (Auto) 1.4x10^3/uL (1.0-4.8) Monocytes # (Auto) 1.5x10^3/uL (0.0-1.1) Eosinophils # (Auto) 0.1x10^3/uL (0.0-0.7) Basophils # (Auto) 0.0x10^3/uL (0.0-0.2) Sodium Level 141mmol/L (136-145) Potassium Level 3.7mmol/L (3.5-5.1) Chloride Level 105mmol/L (98-107) Carbon Dioxide Level 27mmol/L (21-32) Anion Gap 9 (6-14) Blood Urea Nitrogen 7mg/dL (8-26) Creatinine 1.2mg/dL (0.7-1.3) Estimated GFR (Cockcroft-Gault) 65.2 Glucose Level 103mg/dL (70-99) Calcium Level 8.4mg/dL (8.5-10.1) Total Bilirubin 5.9mg/dL (0.2-1.0) Direct Bilirubin 4.1mg/dL (0.0-0.2) Aspartate Amino Transf (AST/SGOT) 204U/L (15-37) Alanine Aminotransferase (ALT/SGPT) 611U/L (16-63) Alkaline Phosphatase 150U/L (46-116) Total Protein 6.1g/dL (6.4-8.2) Albumin 3.5g/dL (3.4-5.0) --pain better, but bili went up. Medications Current Medications Fentanyl Citrate 50 mcg 50 mcg PRN Q15MIN PRN IV PAIN GREATER THAN 3/10 Last administered on 07/16/16 05:18; Start 07/16/16 at 03:00; Stop 07/16/16 at 07:00; Status DC Sodium Chloride (Iv Sodium Chloride 0.9% 1000ml Bag) 1,000 ml @ 1,000 mls/hr Q1H IV Last administered on 07/16/16 03:34; Start 07/16/16 at 03:30; Stop at 04:29; Status DC Ondansetron HCl (Zofran) 4 mg 1X ONCE IV Last administered on 07/16/16 03:34; Start 07/16/16 at 03:30; Stop 07/16/16 at 03:31; Status DC Iohexol (Omnipaque 300 Mg/ml) 75 ml 1X ONCE IV Last administered on 07/16/16 04:44; Start 07/16/16 at 04:30; Stop 07/16/16 at 04:31; Status DC Info (Do NOT chart on this entry -- for MONITORING) 1 each PRN DAILY PRN MC SEE COMMENTS; Start 07/16/16 at 04:30; Stop 07/18/16 at 04:29 Ondansetron HCl (Zofran) 4 mg 1X ONCE IV Last administered on 07/16/16 05:18; Start 07/16/16 at 05:30; Stop 07/16/16 at 05:31; Status DC Morphine Sulfate 4 mg 4 mg PRN Q15MIN PRN IV/SQ PAIN GREATER THAN 3/10; Start 07/16/16 at 06:15; Stop 07/16/16 at 09:00; Status DC Ceftriaxone Sodium 50 ml @ 100 mls/hr 1X ONCE IV Last administered on 10:00; Start 07/16/16 at 07:00; Stop 07/16/16 at 07:29; Status DC Ceftriaxone Sodium 1 gm/ Sodium Chloride 50 ml @ 100 mls/hr Q24H IV Last administered on 07/17/16 06:00; Start 07/17/16 at 07:00 Metronidazole 100 ml @ 100 mls/hr 1X ONCE IV Last administered on 07/16/16 09 :59; Start 07/16/16 at 07:00; Stop 07/16/16 at 07:59; Status DC Metronidazole (FLAGYL 500Mmg PREMIX) 100 ml @ 100 mls/hr Q8HRS IV Last administered on 07/17/16 06:00; Start 07/16/16 at 14:00 Ondansetron HCl (Zofran) 4 mg PRN Q8HRS PRN IV NAUSEA/VOMITING; Start 07/16/16 at 07:00; Stop 07/16/16 at 13:54; Status DC Morphine Sulfate 4 mg 4 mg PRN Q2HR PRN IV SEVERE PAIN; Start 07/16/16 at 07:00 ; Stop 07/16/16 at 13:55; Status DC Sodium Chloride (Iv Sodium Chloride 0.9% 1000ml Bag) 1,000 ml @ 125 mls/hr Q8H IV Last administered on 07/16/16 21:33; Start 07/16/16 at 06:57; Stop 07/17/16 at 06:56; Status DC Acetaminophen (Tylenol) 650 mg PRN Q4HRS PRN PO FEVER; Start 07/16/16 at 07:00; Stop 07/16/16 at 13:54; Status DC Pantoprazole Sodium (Protonix) 40 mg DAILYAC PO Last administered on 07/17/16 09:39; Start 07/16/16 at 11:00 Acetaminophen (Tylenol) 650 mg PRN Q6HRS PRN PO MILD PAIN / TEMP Last administered on 07/17/16 03:19; Start 07/16/16 at 13:45 Ondansetron HCl (Zofran) 4 mg PRN Q6HRS PRN IV NAUSEA/VOMITING; Start 07/16/16 at 13:45 Morphine Sulfate 2 mg PRN Q2HR PRN IV PAIN; Start 07/16/16 at 13:45 Morphine Sulfate 4 mg PRN Q2HR PRN IV PAIN; Start 07/16/16 at 13:45 Enoxaparin Sodium (Lovenox 40mg Syringe) 40 mg Q24H SQ Last administered on 07/17t 09:40; Start 07/17/16 at 10:00 Active Scripts Active Reported Aspir 81 (Aspirin) 81 Mg Tablet. 1 Tab PO DAILY Prilosec Otc (Omeprazole Magnesium) 20 Mg Tablet.dr Diane Tab PO DAILY Vitals/I & O Vital Sign - Last 24 Hours 07/16/16 07/16/16 07/16/16 07/16/16 15:00 19:00 20:18 23:00 Temp 99.5 98.5 97.9 99.5 98.5 97.9 Pulse 96 93 83 Resp 18 18 18 B/P 124/75 136/86 126/84 Pulse Ox 95 96 96 O2 Delivery Room Air Room Air Room Air Room Air 07/17/16 07/17/16 07/17/16 07/17/16 03:00 07:00 08:00 11:00 Temp 97.9 98.2 98.5 97.9 98.2 98.5 Pulse 71 75 77 Resp 18 18 18 B/P 125/88 139/92 143/91 Pulse Ox 97 97 94 O2 Delivery Room Air Room Air Room Air Room Air Images MRCP report pending. Problem List Problems Medical Problems: (1) Abdominal pain Status: Acute (2) Elevated liver enzymes Status: Acute Assessment IMP: 1. Pain with abnormal LFT"s and dilated biliary system. Differential mainly stone, SOD or papillary stenosis. ERCP would be approach of choice with any of these. 2. Low ceruloplasmin. Real or spurious or heterozygote for Marc's disease? Plan of Care Note ERCP tomorrow. Discussed with patient and he's willing to proceed. Check ceruloplasmin; if still low, 24-hour urine copper level. ALONSO BENTLEY MD Jul 17, 2016 13:52
--- NOTE | 2016-07-17 13:58 | PDOC ---
PROGRESS NOTES Chief Complaint Chief Complaint 1. epigastric abd pain with N/V 2/2 gastritis vs biliary origin with high LFT 2. H/O DUNG hepatitis 3. s/o cholecystectomy, indication uncertain 4. HTN 5. GERD 6. Recent minor hematochezia; history suggests likely hemorrhoidal. 7. h/o Low ceruloplasmin PLAN: 1. FU WITH GI, MRCP done, result pending 2. protonix 3. clear liquid diet 4. check LFT, Hepatitis panel dvt ppx repeat ceruloplasmi as per GI ERCP tmr, then dc abx History of Present Illness History of Present Illness no N/V, no abd pain overnight on clear liquid higher bili today, MRCP pending Vitals Vitals Vital Signs Date Time Temp Pulse Resp B/P Pulse Ox O2 Delivery O2 Flow Rate FiO2 07/17/16 11:00 98.5 77 18 143/91 94 Room Air 98.5 Physical Exam General: Alert, Oriented X3, Cooperative, No acute distress Heart: Regular rate, Normal S1, Normal S2, No murmurs Abdomen: Normal bowel sounds, Soft, No tenderness, No hepatosplenomegaly, No masses Extremities: No cyanosis, No edema Skin: No significant lesion Labs LABS Laboratory Tests Test 07/17/16 05:45 White Blood Count 12.1x10^3/uL (4.0-11.0) Red Blood Count 5.04x10^6/uL (4.30-5.70) Hemoglobin 15.1g/dL (13.0-17.5) Hematocrit 44.8% (39.0-53.0) Mean Corpuscular Volume 89fL (79-100) Mean Corpuscular Hemoglobin 30pg (25-35) Mean Corpuscular Hemoglobin Concent 34g/dL (31-37) Red Cell Distribution Width 13.2% (11.5-14.5) Platelet Count 177x10^3/uL (140-400) Neutrophils (%) (Auto) 75% (31-73) Lymphocytes (%) (Auto) 12% (24-48) Monocytes (%) (Auto) 12% (0-9) Eosinophils (%) (Auto) 1% (0-3) Basophils (%) (Auto) 0% (0-3) Neutrophils # (Auto) 9.0x10^3uL (1.8-7.7) Lymphocytes # (Auto) 1.4x10^3/uL (1.0-4.8) Monocytes # (Auto) 1.5x10^3/uL (0.0-1.1) Eosinophils # (Auto) 0.1x10^3/uL (0.0-0.7) Basophils # (Auto) 0.0x10^3/uL (0.0-0.2) Sodium Level 141mmol/L (136-145) Potassium Level 3.7mmol/L (3.5-5.1) Chloride Level 105mmol/L (98-107) Carbon Dioxide Level 27mmol/L (21-32) Anion Gap 9 (6-14) Blood Urea Nitrogen 7mg/dL (8-26) Creatinine 1.2mg/dL (0.7-1.3) Estimated GFR (Cockcroft-Gault) 65.2 Glucose Level 103mg/dL (70-99) Calcium Level 8.4mg/dL (8.5-10.1) Total Bilirubin 5.9mg/dL (0.2-1.0) Direct Bilirubin 4.1mg/dL (0.0-0.2) Aspartate Amino Transf (AST/SGOT) 204U/L (15-37) Alanine Aminotransferase (ALT/SGPT) 611U/L (16-63) Alkaline Phosphatase 150U/L (46-116) Total Protein 6.1g/dL (6.4-8.2) Albumin 3.5g/dL (3.4-5.0) Assessment and Plan Assessmemt and Plan Problems Medical Problems: (1) Abdominal pain Status: Acute (2) Elevated liver enzymes Status: Acute Problems: Comment Review of Relevant I have reviewed the following items binh (where applicable) has been applied. Labs Laboratory Tests Test 07/16/16 03:30 07/16/16 04:00 07/17/16 05:45 White Blood Count 13.8x10^3/uL (4.0-11.0) 12.1x10^3/uL (4.0-11.0) Red Blood Count 5.58x10^6/uL (4.30-5.70) 5.04x10^6/uL (4.30-5.70) Hemoglobin 16.8g/dL (13.0-17.5) 15.1g/dL (13.0-17.5) Hematocrit 50.0% (39.0-53.0) 44.8% (39.0-53.0) Mean Corpuscular Volume 90fL (79-100) 89fL (79-100) Mean Corpuscular Hemoglobin 30pg (25-35) 30pg (25-35) Mean Corpuscular Hemoglobin Concent 34g/dL (31-37) 34g/dL (31-37) Red Cell Distribution Width 13.0% (11.5-14.5) 13.2% (11.5-14.5) Platelet Count 219x10^3/uL (140-400) 177x10^3/uL (140-400) Neutrophils (%) (Auto) 86% (31-73) 75% (31-73) Lymphocytes (%) (Auto) 9% (24-48) 12% (24-48) Monocytes (%) (Auto) 4% (0-9) 12% (0-9) Eosinophils (%) (Auto) 0% (0-3) 1% (0-3) Basophils (%) (Auto) 1% (0-3) 0% (0-3) Neutrophils # (Auto) 11.9x10^3uL (1.8-7.7) 9.0x10^3uL (1.8-7.7) Lymphocytes # (Auto) 1.2x10^3/uL (1.0-4.8) 1.4x10^3/uL (1.0-4.8) Monocytes # (Auto) 0.6x10^3/uL (0.0-1.1) 1.5x10^3/uL (0.0-1.1) Eosinophils # (Auto) 0.0x10^3/uL (0.0-0.7) 0.1x10^3/uL (0.0-0.7) Basophils # (Auto) 0.1x10^3/uL (0.0-0.2) 0.0x10^3/uL (0.0-0.2) Segmented Neutrophils % 88% (35-66) Band Neutrophils % 4% (0-9) Lymphocytes % 4% (24-48) Monocytes % 4% (0-10) Platelet Estimate Adequate (ADEQUATE) Prothrombin Time 12.2SEC (11.7-14.0) Prothromb Time International Ratio 1.0 (0.8-1.1) Activated Partial Thromboplast Time 22SEC (24-38) Sodium Level 143mmol/L (136-145) 141mmol/L (136-145) Potassium Level 4.1mmol/L (3.5-5.1) 3.7mmol/L (3.5-5.1) Chloride Level 104mmol/L (98-107) 105mmol/L (98-107) Carbon Dioxide Level 25mmol/L (21-32) 27mmol/L (21-32) Anion Gap 14 (6-14) 9 (6-14) Blood Urea Nitrogen 10mg/dL (8-26) 7mg/dL (8-26) Creatinine 1.3mg/dL (0.7-1.3) 1.2mg/dL (0.7-1.3) Estimated GFR (Cockcroft-Gault) 59.4 65.2 BUN/Creatinine Ratio 8 (6-20) Glucose Level 167mg/dL (70-99) 103mg/dL (70-99) Calcium Level 10.1mg/dL (8.5-10.1) 8.4mg/dL (8.5-10.1) Total Bilirubin 3.0mg/dL (0.2-1.0) 5.9mg/dL (0.2-1.0) Aspartate Amino Transf (AST/SGOT) 282U/L (15-37) 204U/L (15-37) Alanine Aminotransferase (ALT/SGPT) 645U/L (16-63) 611U/L (16-63) Alkaline Phosphatase 173U/L (46-116) 150U/L (46-116) Troponin I Quantitative < 0.017ng/mL (0.000-0.055) Total Protein 8.3g/dL (6.4-8.2) 6.1g/dL (6.4-8.2) Albumin 5.0g/dL (3.4-5.0) 3.5g/dL (3.4-5.0) Albumin/Globulin Ratio 1.5 (1.0-1.7) Lipase 296U/L (73-393) Hepatitis A IgM Antibody Negative (Negative) Hepatitis B Surface Antigen Negative (Negative) Hepatitis B Core IgM Antibody Negative (Negative) Hepatitis C Antibody <0.1s/co ratio (0.0-0.9) Urine Collection Type Unknown Urine Color [place] Urine Clarity Cloudy Urine pH 6.5 Urine Specific [place] 1.025 Urine Protein Negativemg/dL (NEG-TRACE) Urine Glucose (UA) Negativemg/dL (NEG) Urine Ketones (Stick) 40mg/dL (NEG) Urine Blood Negative (NEG) Urine Nitrite Negative (NEG) Urine Bilirubin Small (NEG) Urine Urobilinogen Dipstick 2.0mg/dL (0.2 mg/dL) Urine Leukocyte Esterase Trace (NEG) Urine RBC Occ/HPF (0-2) Urine WBC Occ/HPF (0-4) Urine Squamous Epithelial Cells None/LPF Urine Amorphous Sediment Present/HPF Urine Bacteria 0/HPF (0-FEW) Urine Mucus Mod/LPF Urine Opiates Screen Neg (NEG) Urine Methadone Screen Neg (NEG) Urine Barbiturates Neg (NEG) Urine Phencyclidine Screen Neg (NEG) Urine Amphetamine/Methamphetamine Neg (NEG) Urine Benzodiazepines Screen Neg (NEG) Urine Cocaine Screen Neg (NEG) Urine Cannabinoids Screen Pos (NEG) Urine Ethyl Alcohol Neg (NEG) Direct Bilirubin 4.1mg/dL (0.0-0.2) Laboratory Tests Test 07/17/16 05:45 White Blood Count 12.1x10^3/uL (4.0-11.0) Red Blood Count 5.04x10^6/uL (4.30-5.70) Hemoglobin 15.1g/dL (13.0-17.5) Hematocrit 44.8% (39.0-53.0) Mean Corpuscular Volume 89fL (79-100) Mean Corpuscular Hemoglobin 30pg (25-35) Mean Corpuscular Hemoglobin Concent 34g/dL (31-37) Red Cell Distribution Width 13.2% (11.5-14.5) Platelet Count 177x10^3/uL (140-400) Neutrophils (%) (Auto) 75% (31-73) Lymphocytes (%) (Auto) 12% (24-48) Monocytes (%) (Auto) 12% (0-9) Eosinophils (%) (Auto) 1% (0-3) Basophils (%) (Auto) 0% (0-3) Neutrophils # (Auto) 9.0x10^3uL (1.8-7.7) Lymphocytes # (Auto) 1.4x10^3/uL (1.0-4.8) Monocytes # (Auto) 1.5x10^3/uL (0.0-1.1) Eosinophils # (Auto) 0.1x10^3/uL (0.0-0.7) Basophils # (Auto) 0.0x10^3/uL (0.0-0.2) Sodium Level 141mmol/L (136-145) Potassium Level 3.7mmol/L (3.5-5.1) Chloride Level 105mmol/L (98-107) Carbon Dioxide Level 27mmol/L (21-32) Anion Gap 9 (6-14) Blood Urea Nitrogen 7mg/dL (8-26) Creatinine 1.2mg/dL (0.7-1.3) Estimated GFR (Cockcroft-Gault) 65.2 Glucose Level 103mg/dL (70-99) Calcium Level 8.4mg/dL (8.5-10.1) Total Bilirubin 5.9mg/dL (0.2-1.0) Direct Bilirubin 4.1mg/dL (0.0-0.2) Aspartate Amino Transf (AST/SGOT) 204U/L (15-37) Alanine Aminotransferase (ALT/SGPT) 611U/L (16-63) Alkaline Phosphatase 150U/L (46-116) Total Protein 6.1g/dL (6.4-8.2) Albumin 3.5g/dL (3.4-5.0) Medications Current Medications Fentanyl Citrate 50 mcg 50 mcg PRN Q15MIN PRN IV PAIN GREATER THAN 3/10 Last administered on 07/16/16 05:18; Start 07/16/16 at 03:00; Stop 07/16/16 at 07:00; Status DC Sodium Chloride (Iv Sodium Chloride 0.9% 1000ml Bag) 1,000 ml @ 1,000 mls/hr Q1H IV Last administered on 07/16/16 03:34; Start 07/16/16 at 03:30; Stop at 04:29; Status DC Ondansetron HCl (Zofran) 4 mg 1X ONCE IV Last administered on 07/16/16 03:34; Start 07/16/16 at 03:30; Stop 07/16/16 at 03:31; Status DC Iohexol (Omnipaque 300 Mg/ml) 75 ml 1X ONCE IV Last administered on 07/16/16 04:44; Start 07/16/16 at 04:30; Stop 07/16/16 at 04:31; Status DC Info (Do NOT chart on this entry -- for MONITORING) 1 each PRN DAILY PRN MC SEE COMMENTS; Start 07/16/16 at 04:30; Stop 07/18/16 at 04:29 Ondansetron HCl (Zofran) 4 mg 1X ONCE IV Last administered on 07/16/16 05:18; Start 07/16/16 at 05:30; Stop 07/16/16 at 05:31; Status DC Morphine Sulfate 4 mg 4 mg PRN Q15MIN PRN IV/SQ PAIN GREATER THAN 3/10; Start 07/16/16 at 06:15; Stop 07/16/16 at 09:00; Status DC Ceftriaxone Sodium 50 ml @ 100 mls/hr 1X ONCE IV Last administered on 10:00; Start 07/16/16 at 07:00; Stop 07/16/16 at 07:29; Status DC Ceftriaxone Sodium 1 gm/ Sodium Chloride 50 ml @ 100 mls/hr Q24H IV Last administered on 07/17/16 06:00; Start 07/17/16 at 07:00 Metronidazole 100 ml @ 100 mls/hr 1X ONCE IV Last administered on 07/16/16 09 :59; Start 07/16/16 at 07:00; Stop 07/16/16 at 07:59; Status DC Metronidazole (FLAGYL 500Mmg PREMIX) 100 ml @ 100 mls/hr Q8HRS IV Last administered on 07/17/16 06:00; Start 07/16/16 at 14:00 Ondansetron HCl (Zofran) 4 mg PRN Q8HRS PRN IV NAUSEA/VOMITING; Start 07/16/16 at 07:00; Stop 07/16/16 at 13:54; Status DC Morphine Sulfate 4 mg 4 mg PRN Q2HR PRN IV SEVERE PAIN; Start 07/16/16 at 07:00 ; Stop 07/16/16 at 13:55; Status DC Sodium Chloride (Iv Sodium Chloride 0.9% 1000ml Bag) 1,000 ml @ 125 mls/hr Q8H IV Last administered on 07/16/16 21:33; Start 07/16/16 at 06:57; Stop 07/17/16 at 06:56; Status DC Acetaminophen (Tylenol) 650 mg PRN Q4HRS PRN PO FEVER; Start 07/16/16 at 07:00; Stop 07/16/16 at 13:54; Status DC Pantoprazole Sodium (Protonix) 40 mg DAILYAC PO Last administered on 07/17/16 09:39; Start 07/16/16 at 11:00 Acetaminophen (Tylenol) 650 mg PRN Q6HRS PRN PO MILD PAIN / TEMP Last administered on 07/17/16 03:19; Start 07/16/16 at 13:45 Ondansetron HCl (Zofran) 4 mg PRN Q6HRS PRN IV NAUSEA/VOMITING; Start 07/16/16 at 13:45 Morphine Sulfate 2 mg PRN Q2HR PRN IV PAIN; Start 07/16/16 at 13:45 Morphine Sulfate 4 mg PRN Q2HR PRN IV PAIN; Start 07/16/16 at 13:45 Enoxaparin Sodium (Lovenox 40mg Syringe) 40 mg Q24H SQ Last administered on 07/17 09:40; Start 07/17/16 at 10:00 Active Scripts Active Reported Aspir 81 (Aspirin) 81 Mg Tablet. 1 Tab PO DAILY Prilosec Otc (Omeprazole Magnesium) 20 Mg Tablet. 1 Tab PO DAILY Vitals/I & O Vital Sign - Last 24 Hours 07/16/16 07/16/16 07/16/16 07/16/16 15:00 19:00 20:18 23:00 Temp 99.5 98.5 97.9 99.5 98.5 97.9 Pulse 96 93 83 Resp 18 18 18 B/P 124/75 136/86 126/84 Pulse Ox 95 96 96 O2 Delivery Room Air Room Air Room Air Room Air 07/17/16 07/17/16 07/17/16 07/17/16 03:00 07:00 08:00 11:00 Temp 97.9 98.2 98.5 97.9 98.2 98.5 Pulse 71 75 77 Resp 18 18 18 B/P 125/88 139/92 143/91 Pulse Ox 97 97 94 O2 Delivery Room Air Room Air Room Air Room Air KEIRY PARIKH MD Jul 17, 2016 13:58
--- NOTE | 2016-07-17 15:37 | RAD ---
MRI of the abdomen to include a MRCP without contrast 07/16/2016 Clinical history: Upper abdominal pain. History of cholecystectomy. Technique: Unenhanced T2-weighted axial and coronal and in and out of phase T1-weighted axial images of the abdomen were obtained. Thin section volumetric fat saturated T2-weighted coronal images of the abdomen were obtained. Multiplanar 3-D MIP reconstructed images were generated for an MRCP. Findings: Comparison is made to the patient's ultrasound of the right upper quadrant of the abdomen and CT scan of the abdomen and pelvis dated 07/16/2016. No focal abnormality of the liver, spleen, pancreas, adrenal glands or kidneys is seen. The abdominal aorta tapers normally. No free fluid is seen within the abdomen. MRCP are degraded by motion. These Images demonstrate nonvisualization of the gallbladder consistent with a cholecystectomy. The common hepatic duct and common bile duct is normal in caliber as is the visualized portions of the main pancreatic duct. No stricture or filling defect is seen. Impression: Status post cholecystectomy. No stricture or filling defect is seen involving the common hepatic or common bile duct.
[2016-07-17] MEDS: MORPHINE SULFATE 2 MG/ML DISP.SYRIN. IV PRN (19:43)
[2016-07-18 03:00] VITALS: BP 146/87
[2016-07-18 04:57] LABS: BASO % 1 % (0-3); EOS % 3 % (0-3); HEMATOCRIT 44.7 % (39.0-53.0); HEMOGLOBIN 15.2 g/dL (13.0-17.5); LYMPH # 1.6 x10^3/uL (1.0-4.8); LYMPH % 21 % (24-48); MEAN CORPUSCULAR HEMOGLOBIN 30 pg (25-35); MEAN CORPUSCULAR HGB CONC 34 g/dL (31-37); MEAN CORPUSCULAR VOLUME 89 fL (79-100); MONO % 20 % (0-9); NEUT % 55 % (31-73); PLATELET COUNT 178 x10^3/uL (140-400); RED BLOOD COUNT 5.03 x10^6/uL (4.30-5.70); RED CELL DISTRIBUTION WIDTH 13.5 % (11.5-14.5); WHITE BLOOD COUNT 7.8 x10^3/uL (4.0-11.0)
[2016-07-18 05:45] LABS: CALCIUM 8.5 mg/dL (8.5-10.1); CREATININE 1.1 mg/dL (0.7-1.3); GFR 72.1; POTASSIUM 3.2 mmol/L (3.5-5.1)
[2016-07-18 05:49] LABS: ALBUMIN 3.4 g/dL (3.4-5.0); DIRECT BILIRUBIN 2.7 mg/dL (0.0-0.2); TOTAL BILIRUBIN 4.2 mg/dL (0.2-1.0)
[2016-07-18] MEDS: CEFTRIAXONE SODIUM 1 GM in IV NORMAL SALINE 50ML 50 ML IV SCH (06:34)
[2016-07-18] MEDS: METRONIDAZOLE 500mg PREMIX 100 ML IV SCH ×3 (06:39→21:20)
[2016-07-18] MEDS: PANTOPRAZOLE 40 MG TABLET. PO SCH (06:39)
[2016-07-18 07:00] VITALS: BP 161/97
[2016-07-18] MEDS: ENOXAPARIN 40 MG/0.4 ML DISP.SYRIN. SQ SCH (10:00)
[2016-07-18 11:11] VITALS: BP 150/96
[2016-07-18] MEDS ORDERED: DEXAMETHASONE SOD PHOS 20 MG/5 ML VIAL. ONE (12:00)
[2016-07-18] MEDS ORDERED: GLYCOPYRROLATE 1 MG/5 ML VIAL. ONE (12:00)
[2016-07-18] MEDS ORDERED: LIDOCAINE 2% 100 MG/5 ML DISP.SYRIN. ONE (12:00)
[2016-07-18] MEDS ORDERED: ROCURONIUM 50 MG/5 ML VIAL. ONE (12:00)
[2016-07-18] MEDS ORDERED: PROPOFOL 10 MG/ML (20ML) VIAL. IV ONE (12:00)
[2016-07-18] MEDS ORDERED: NEOSTIGMINE METHYLSULFATE 5 MG/5 ML SYRINGE. ONE (12:00)
--- NOTE | 2016-07-18 12:51 | PDOC ---
PROGRESS NOTES Chief Complaint Chief Complaint 1. epigastric abd pain with N/V 2/2 gastritis vs biliary origin with high LFT 2. H/O DUNG hepatitis 3. s/o cholecystectomy, indication uncertain 4. HTN 5. GERD 6. Recent minor hematochezia; history suggests likely hemorrhoidal. 7. h/o Low ceruloplasmin 1. GI, ERCP 2. protonix LFT at little better History of Present Illness History of Present Illness no N/V, no abd pain overnight NPO for ERCP Vitals Vitals Vital Signs Date Time Temp Pulse Resp B/P Pulse Ox O2 Delivery O2 Flow Rate FiO2 07/18/16 11:11 98.7 78 14 150/96 96 Room Air 98.7 Physical Exam General: Alert, Oriented X3, Cooperative, No acute distress Heart: Regular rate, Normal S1, Normal S2, No murmurs Abdomen: Normal bowel sounds, Soft, No tenderness, No hepatosplenomegaly, No masses Extremities: No cyanosis, No edema Skin: No significant lesion Labs LABS Laboratory Tests Test 07/18/16 03:40 White Blood Count 7.8x10^3/uL (4.0-11.0) Red Blood Count 5.03x10^6/uL (4.30-5.70) Hemoglobin 15.2g/dL (13.0-17.5) Hematocrit 44.7% (39.0-53.0) Mean Corpuscular Volume 89fL (79-100) Mean Corpuscular Hemoglobin 30pg (25-35) Mean Corpuscular Hemoglobin Concent 34g/dL (31-37) Red Cell Distribution Width 13.5% (11.5-14.5) Platelet Count 178x10^3/uL (140-400) Neutrophils (%) (Auto) 55% (31-73) Lymphocytes (%) (Auto) 21% (24-48) Monocytes (%) (Auto) 20% (0-9) Eosinophils (%) (Auto) 3% (0-3) Basophils (%) (Auto) 1% (0-3) Neutrophils # (Auto) 4.3x10^3uL (1.8-7.7) Lymphocytes # (Auto) 1.6x10^3/uL (1.0-4.8) Monocytes # (Auto) 1.6x10^3/uL (0.0-1.1) Eosinophils # (Auto) 0.3x10^3/uL (0.0-0.7) Basophils # (Auto) 0.0x10^3/uL (0.0-0.2) Sodium Level 135mmol/L (136-145) Potassium Level 3.2mmol/L (3.5-5.1) Chloride Level 103mmol/L (98-107) Carbon Dioxide Level 26mmol/L (21-32) Anion Gap 6 (6-14) Blood Urea Nitrogen 6mg/dL (8-26) Creatinine 1.1mg/dL (0.7-1.3) Estimated GFR (Cockcroft-Gault) 72.1 Glucose Level 103mg/dL (70-99) Calcium Level 8.5mg/dL (8.5-10.1) Total Bilirubin 4.2mg/dL (0.2-1.0) Direct Bilirubin 2.7mg/dL (0.0-0.2) Aspartate Amino Transf (AST/SGOT) 106U/L (15-37) Alanine Aminotransferase (ALT/SGPT) 458U/L (16-63) Alkaline Phosphatase 155U/L (46-116) Total Protein 7.0g/dL (6.4-8.2) Albumin 3.4g/dL (3.4-5.0) Assessment and Plan Assessmemt and Plan Problems Medical Problems: (1) Abdominal pain Status: Acute (2) Elevated liver enzymes Status: Acute Problems: Comment Review of Relevant I have reviewed the following items binh (where applicable) has been applied. Labs Laboratory Tests Test 07/17/16 05:45 07/18/16 03:40 White Blood Count 12.1x10^3/uL (4.0-11.0) 7.8x10^3/uL (4.0-11.0) Red Blood Count 5.04x10^6/uL (4.30-5.70) 5.03x10^6/uL (4.30-5.70) Hemoglobin 15.1g/dL (13.0-17.5) 15.2g/dL (13.0-17.5) Hematocrit 44.8% (39.0-53.0) 44.7% (39.0-53.0) Mean Corpuscular Volume 89fL (79-100) 89fL (79-100) Mean Corpuscular Hemoglobin 30pg (25-35) 30pg (25-35) Mean Corpuscular Hemoglobin Concent 34g/dL (31-37) 34g/dL (31-37) Red Cell Distribution Width 13.2% (11.5-14.5) 13.5% (11.5-14.5) Platelet Count 177x10^3/uL (140-400) 178x10^3/uL (140-400) Neutrophils (%) (Auto) 75% (31-73) 55% (31-73) Lymphocytes (%) (Auto) 12% (24-48) 21% (24-48) Monocytes (%) (Auto) 12% (0-9) 20% (0-9) Eosinophils (%) (Auto) 1% (0-3) 3% (0-3) Basophils (%) (Auto) 0% (0-3) 1% (0-3) Neutrophils # (Auto) 9.0x10^3uL (1.8-7.7) 4.3x10^3uL (1.8-7.7) Lymphocytes # (Auto) 1.4x10^3/uL (1.0-4.8) 1.6x10^3/uL (1.0-4.8) Monocytes # (Auto) 1.5x10^3/uL (0.0-1.1) 1.6x10^3/uL (0.0-1.1) Eosinophils # (Auto) 0.1x10^3/uL (0.0-0.7) 0.3x10^3/uL (0.0-0.7) Basophils # (Auto) 0.0x10^3/uL (0.0-0.2) 0.0x10^3/uL (0.0-0.2) Sodium Level 141mmol/L (136-145) 135mmol/L (136-145) Potassium Level 3.7mmol/L (3.5-5.1) 3.2mmol/L (3.5-5.1) Chloride Level 105mmol/L (98-107) 103mmol/L (98-107) Carbon Dioxide Level 27mmol/L (21-32) 26mmol/L (21-32) Anion Gap 9 (6-14) 6 (6-14) Blood Urea Nitrogen 7mg/dL (8-26) 6mg/dL (8-26) Creatinine 1.2mg/dL (0.7-1.3) 1.1mg/dL (0.7-1.3) Estimated GFR (Cockcroft-Gault) 65.2 72.1 Glucose Level 103mg/dL (70-99) 103mg/dL (70-99) Calcium Level 8.4mg/dL (8.5-10.1) 8.5mg/dL (8.5-10.1) Total Bilirubin 5.9mg/dL (0.2-1.0) 4.2mg/dL (0.2-1.0) Direct Bilirubin 4.1mg/dL (0.0-0.2) 2.7mg/dL (0.0-0.2) Aspartate Amino Transf (AST/SGOT) 204U/L (15-37) 106U/L (15-37) Alanine Aminotransferase (ALT/SGPT) 611U/L (16-63) 458U/L (16-63) Alkaline Phosphatase 150U/L (46-116) 155U/L (46-116) Total Protein 6.1g/dL (6.4-8.2) 7.0g/dL (6.4-8.2) Albumin 3.5g/dL (3.4-5.0) 3.4g/dL (3.4-5.0) Laboratory Tests Test 07/18/16 03:40 White Blood Count 7.8x10^3/uL (4.0-11.0) Red Blood Count 5.03x10^6/uL (4.30-5.70) Hemoglobin 15.2g/dL (13.0-17.5) Hematocrit 44.7% (39.0-53.0) Mean Corpuscular Volume 89fL (79-100) Mean Corpuscular Hemoglobin 30pg (25-35) Mean Corpuscular Hemoglobin Concent 34g/dL (31-37) Red Cell Distribution Width 13.5% (11.5-14.5) Platelet Count 178x10^3/uL (140-400) Neutrophils (%) (Auto) 55% (31-73) Lymphocytes (%) (Auto) 21% (24-48) Monocytes (%) (Auto) 20% (0-9) Eosinophils (%) (Auto) 3% (0-3) Basophils (%) (Auto) 1% (0-3) Neutrophils # (Auto) 4.3x10^3uL (1.8-7.7) Lymphocytes # (Auto) 1.6x10^3/uL (1.0-4.8) Monocytes # (Auto) 1.6x10^3/uL (0.0-1.1) Eosinophils # (Auto) 0.3x10^3/uL (0.0-0.7) Basophils # (Auto) 0.0x10^3/uL (0.0-0.2) Sodium Level 135mmol/L (136-145) Potassium Level 3.2mmol/L (3.5-5.1) Chloride Level 103mmol/L (98-107) Carbon Dioxide Level 26mmol/L (21-32) Anion Gap 6 (6-14) Blood Urea Nitrogen 6mg/dL (8-26) Creatinine 1.1mg/dL (0.7-1.3) Estimated GFR (Cockcroft-Gault) 72.1 Glucose Level 103mg/dL (70-99) Calcium Level 8.5mg/dL (8.5-10.1) Total Bilirubin 4.2mg/dL (0.2-1.0) Direct Bilirubin 2.7mg/dL (0.0-0.2) Aspartate Amino Transf (AST/SGOT) 106U/L (15-37) Alanine Aminotransferase (ALT/SGPT) 458U/L (16-63) Alkaline Phosphatase 155U/L (46-116) Total Protein 7.0g/dL (6.4-8.2) Albumin 3.4g/dL (3.4-5.0) Microbiology 07/16/16 Urine Culture - Final, Complete 07/16/16 Urine Culture Result 1 (SABI) - Final, Complete Medications Current Medications Fentanyl Citrate 50 mcg 50 mcg PRN Q15MIN PRN IV PAIN GREATER THAN 3/10 Last administered on 2/4/17at 05:18; Start 07/16/16 at 03:00; Stop 07/16/16 at 07:00; Status DC Sodium Chloride (Iv Sodium Chloride 0.9% 1000ml Bag) 1,000 ml @ 1,000 mls/hr Q1H IV Last administered on 07/16/16 03:34; Start 07/16/16 at 03:30; Stop at 04:29; Status DC Ondansetron HCl (Zofran) 4 mg 1X ONCE IV Last administered on 07/16/16 03:34; Start 07/16/16 at 03:30; Stop 07/16/16 at 03:31; Status DC Iohexol (Omnipaque 300 Mg/ml) 75 ml 1X ONCE IV Last administered on 07/16/16 04:44; Start 07/16/16 at 04:30; Stop 07/16/16 at 04:31; Status DC Info (Do NOT chart on this entry -- for MONITORING) 1 each PRN DAILY PRN MC SEE COMMENTS; Start 07/16/16 at 04:30; Stop 07/18/16 at 04:29; Status DC Ondansetron HCl (Zofran) 4 mg 1X ONCE IV Last administered on 07/16/16 05:18; Start 07/16/16 at 05:30; Stop 07/16/16 at 05:31; Status DC Morphine Sulfate 4 mg 4 mg PRN Q15MIN PRN IV/SQ PAIN GREATER THAN 3/10; Start 07/16/16 at 06:15; Stop 07/16/16 at 09:00; Status DC Ceftriaxone Sodium 50 ml @ 100 mls/hr 1X ONCE IV Last administered on 10:00; Start 07/16/16 at 07:00; Stop 07/16/16 at 07:29; Status DC Ceftriaxone Sodium 1 gm/ Sodium Chloride 50 ml @ 100 mls/hr Q24H IV Last administered on 07/18/16 06:34; Start 07/17/16 at 07:00 Metronidazole 100 ml @ 100 mls/hr 1X ONCE IV Last administered on 07/16/16 09 :59; Start 07/16/16 at 07:00; Stop 07/16/16 at 07:59; Status DC Metronidazole (FLAGYL 500Mmg PREMIX) 100 ml @ 100 mls/hr Q8HRS IV Last administered on 07/18/16 06:39; Start 07/16/16 at 14:00 Ondansetron HCl (Zofran) 4 mg PRN Q8HRS PRN IV NAUSEA/VOMITING; Start 07/16/16 at 07:00; Stop 07/16/16 at 13:54; Status DC Morphine Sulfate 4 mg 4 mg PRN Q2HR PRN IV SEVERE PAIN; Start 07/16/16 at 07:00 ; Stop 07/16/16 at 13:55; Status DC Sodium Chloride (Iv Sodium Chloride 0.9% 1000ml Bag) 1,000 ml @ 125 mls/hr Q8H IV Last administered on 07/16/16 21:33; Start 07/16/16 at 06:57; Stop 07/17/16 at 06:56; Status DC Acetaminophen (Tylenol) 650 mg PRN Q4HRS PRN PO FEVER; Start 07/16/16 at 07:00; Stop 07/16/16 at 13:54; Status DC Pantoprazole Sodium (Protonix) 40 mg DAILYAC PO Last administered on 07/18/16 06:39; Start 07/16/16 at 11:00 Acetaminophen (Tylenol) 650 mg PRN Q6HRS PRN PO MILD PAIN / TEMP Last administered on 07/17/16 14:05; Start 07/16/16 at 13:45 Ondansetron HCl (Zofran) 4 mg PRN Q6HRS PRN IV NAUSEA/VOMITING; Start 07/16/16 at 13:45 Morphine Sulfate 2 mg PRN Q2HR PRN IV PAIN Last administered on 07/17/16 19:43 ; Start 07/16/16 at 13:45 Morphine Sulfate 4 mg PRN Q2HR PRN IV PAIN; Start 07/16/16 at 13:45 Enoxaparin Sodium 40 mg 40 mg Q24H SQ Last administered on 07/17/16 09:40; Start 07/17/16 at 10:00 Levofloxacin/ Dextrose (LEVAQUIN 250mg PREMIX) 50 ml @ 50 mls/hr 1X ONCE IV ; Start 07/17/16 at 14:30; Stop 07/17/16 at 14:30; Status DC Potassium Chloride (Klor-Con) 20 meq [id number] PO ; Start 07/19/16 at 08:00 Potassium Chloride (Klor-Con) 40 meq 1X ONCE PO ; Start 07/18/16 at 16:00; Stop 07/18/16 at 16:01 Active Scripts Active Reported Aspir 81 (Aspirin) 81 Mg Tablet.dr Diane Tab PO DAILY Prilosec Otc (Omeprazole Magnesium) 20 Mg Tablet.dr Diane Tab PO DAILY Vitals/I & O Vital Sign - Last 24 Hours 07/17/16 07/17/16 07/17/16 07/17/16 15:00 16:18 19:00 19:43 Temp 98.1 98.1 98.0 98.1 98.1 98.0 Pulse 71 71 75 Resp 18 18 18 20 B/P 145/86 145/86 142/89 Pulse Ox 95 95 96 95 O2 Delivery Room Air Room Air Room Air Room Air 07/17/16 07/17/16 07/17/16 07/18/16 20:00 20:13 23:00 03:00 Temp 98.2 97.8 98.2 97.8 Pulse 81 80 Resp 20 18 18 B/P 136/92 146/87 Pulse Ox 95 99 98 O2 Delivery Room Air Room Air Room Air Room Air 07/18/16 07/18/16 07:00 11:11 Temp 97.7 98.7 97.7 98.7 Pulse 70 78 Resp 12 14 B/P 161/97 150/96 Pulse Ox 96 96 O2 Delivery Room Air Room Air Intake and Output 07/17/16 07/17/16 07/18/16 15:00 23:00 07:00 Intake Total 100 ml Balance 100 ml SANGEETA ALARCON MD Jul 18, 2016 12:51
[2016-07-18] MEDS: IV RINGERS,LACTATED 1000ML 1,000 ML IV SCH (14:15)
[2016-07-18] MEDS ORDERED: IOHEXOL 300 MG/ML 50 ML VIAL. ONE (14:47)
--- NOTE | 2016-07-18 15:41 | PDOC4 ---
PROCEDURE Procedure ERCP/ES Indication: abd pain/reversibly elevated LFT's/dilated biliary system on imaging /history of prior instrumentation of the bile duct. MEDS: GET per anesthesia. Findings: E-not seen G-cursory exam normal. D-normal Major papilla: deformed c/w prior instrumentation/sphincterotomy. Biliary injection to intrahepatic radicles normal with cystic duct remnant seen. No stones or stricture. --ES done and extended to ~9mm; free flow of bile after. One sweep with balloon w/o any material exiting. Tolerated well. 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 REC: clears tonight, if does OK, feed in am. Monitor LFT's. Thanks. ALONSO BENTLEY MD Jul 18, 2016 15:41
[2016-07-18] MEDS ORDERED: POTASSIUM CHLORIDE 20 MEQ TABLET.ER. PO ONE (16:00)
[2016-07-18] MEDS: MORPHINE SULFATE 2 MG/ML DISP.SYRIN. IV PRN (18:38)
[2016-07-18 19:00] VITALS: BP 149/94
[2016-07-18] MEDS ORDERED: BENZOCAINE/MENTHOL LOZENGE. PO PRN (21:45)
[2016-07-18 23:00] VITALS: BP 126/92
[2016-07-19 03:00] VITALS: BP 127/88
[2016-07-19] MEDS: METRONIDAZOLE 500mg PREMIX 100 ML IV SCH ×2 (05:18→14:00)
[2016-07-19] MEDS: CEFTRIAXONE SODIUM 1 GM in IV NORMAL SALINE 50ML 50 ML IV SCH (06:07)
[2016-07-19 07:00] VITALS: BP 125/87
[2016-07-19] MEDS ORDERED: POTASSIUM CHLORIDE 20 MEQ TABLET.ER. PO SCH (08:00)
[2016-07-19] MEDS: PANTOPRAZOLE 40 MG TABLET. PO SCH (08:20)
[2016-07-19 08:54] LABS: ALBUMIN 3.4 g/dL (3.4-5.0); ALBUMIN/GLOBULIN RATIO 0.8 (1.0-1.7); CALCIUM 8.7 mg/dL (8.5-10.1); CREATININE 1.1 mg/dL (0.7-1.3); GFR 72.1; POTASSIUM 3.5 mmol/L (3.5-5.1); TOTAL BILIRUBIN 1.9 mg/dL (0.2-1.0); TOTAL PROTEIN 7.6 g/dL (6.4-8.2)
--- NOTE | 2016-07-19 10:09 | PDOC ---
Subjective: Subjective: Per pt - feels better w/ resolved RUQ discomfort. Noted jaundice yesterday, seems resolved today. Hungry. Objective: Objective: Per RN - doing better, would like to eat. Vital Signs: Vital Signs Date Time Temp Pulse Resp B/P Pulse Ox O2 Delivery O2 Flow Rate FiO2 07/19/16 07:30 Room Air 07/19/16 07:00 98.0 67 16 125/87 98 98.0 Labs: Laboratory Tests Test 07/19/16 07:35 Sodium Level 137mmol/L Potassium Level 3.5mmol/L Chloride Level 102mmol/L Carbon Dioxide Level 23mmol/L Anion Gap 12 Blood Urea Nitrogen 9mg/dL Creatinine 1.1mg/dL Estimated GFR (Cockcroft-Gault) 72.1 BUN/Creatinine Ratio 8 Glucose Level 144mg/dL Calcium Level 8.7mg/dL Total Bilirubin 1.9mg/dL Aspartate Amino Transf (AST/SGOT) 54U/L Alanine Aminotransferase (ALT/SGPT) 327U/L Alkaline Phosphatase 177U/L Total Protein 7.6g/dL Albumin 3.4g/dL Albumin/Globulin Ratio 0.8 Imaging: ERCP 07/18/16 Indication: abd pain/reversibly elevated LFT's/dilated biliary system on imaging /history of prior instrumentation of the bile duct. Findings: E-not seen G-cursory exam normal. D-normal Major papilla: deformed c/w prior instrumentation/sphincterotomy. Biliary injection to intrahepatic radicles normal with cystic duct remnant seen. No stones or stricture. --ES done and extended to ~9mm; free flow of bile after. One sweep with balloon w/o any material exiting. 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 AUSTEN GUIDO Jul 19, 2016 10:09
[2016-07-19 11:00] VITALS: BP 139/93
[2016-07-19] MEDS: ENOXAPARIN 40 MG/0.4 ML DISP.SYRIN. SQ SCH (12:21)
--- NOTE | 2016-07-19 12:26 | PDOC ---
PROGRESS NOTES Chief Complaint Chief Complaint 1. epigastric abdominal s/p sphincterotomy. 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 H/O DUNG hepatitis 3. s/o cholecystectomy, indication uncertain 4. HTN 5. GERD 6. Recent minor hematochezia; history suggests likely hemorrhoidal. 7. h/o Low ceruloplasmin Plan s/p ERCP able to tolerat diet well no fever no chills DC home today If cleared by GI out pt follow up with GI History of Present Illness History of Present Illness NO FEVER NO CHILLS. Vitals Vitals Vital Signs Date Time Temp Pulse Resp B/P Pulse Ox O2 Delivery O2 Flow Rate FiO2 07/19/16 11:00 98.3 65 16 139/93 97 Room Air 98.3 Physical Exam General: Alert, Oriented X3, Cooperative, No acute distress Heart: Regular rate, Normal S1, Normal S2, No murmurs Lungs: Clear, Wheezing Abdomen: Normal bowel sounds, Soft, No tenderness, No hepatosplenomegaly, No masses Extremities: No cyanosis, No edema Skin: No significant lesion Labs LABS Laboratory Tests Test 07/19/16 07:35 Sodium Level 137mmol/L (136-145) Potassium Level 3.5mmol/L (3.5-5.1) Chloride Level 102mmol/L (98-107) Carbon Dioxide Level 23mmol/L (21-32) Anion Gap 12 (6-14) Blood Urea Nitrogen 9mg/dL (8-26) Creatinine 1.1mg/dL (0.7-1.3) Estimated GFR (Cockcroft-Gault) 72.1 BUN/Creatinine Ratio 8 (6-20) Glucose Level 144mg/dL (70-99) Calcium Level 8.7mg/dL (8.5-10.1) Total Bilirubin 1.9mg/dL (0.2-1.0) Aspartate Amino Transf (AST/SGOT) 54U/L (15-37) Alanine Aminotransferase (ALT/SGPT) 327U/L (16-63) Alkaline Phosphatase 177U/L (46-116) Total Protein 7.6g/dL (6.4-8.2) Albumin 3.4g/dL (3.4-5.0) Albumin/Globulin Ratio 0.8 (1.0-1.7) Assessment and Plan Assessmemt and Plan Problems Medical Problems: (1) Abdominal pain Status: Acute (2) Elevated liver enzymes Status: Acute Problems: Comment Review of Relevant I have reviewed the following items binh (where applicable) has been applied. Labs Laboratory Tests Test 07/18/16 03:40 07/19/16 07:35 White Blood Count 7.8x10^3/uL (4.0-11.0) Red Blood Count 5.03x10^6/uL (4.30-5.70) Hemoglobin 15.2g/dL (13.0-17.5) Hematocrit 44.7% (39.0-53.0) Mean Corpuscular Volume 89fL (79-100) Mean Corpuscular Hemoglobin 30pg (25-35) Mean Corpuscular Hemoglobin Concent 34g/dL (31-37) Red Cell Distribution Width 13.5% (11.5-14.5) Platelet Count 178x10^3/uL (140-400) Neutrophils (%) (Auto) 55% (31-73) Lymphocytes (%) (Auto) 21% (24-48) Monocytes (%) (Auto) 20% (0-9) Eosinophils (%) (Auto) 3% (0-3) Basophils (%) (Auto) 1% (0-3) Neutrophils # (Auto) 4.3x10^3uL (1.8-7.7) Lymphocytes # (Auto) 1.6x10^3/uL (1.0-4.8) Monocytes # (Auto) 1.6x10^3/uL (0.0-1.1) Eosinophils # (Auto) 0.3x10^3/uL (0.0-0.7) Basophils # (Auto) 0.0x10^3/uL (0.0-0.2) Sodium Level 135mmol/L (136-145) 137mmol/L (136-145) Potassium Level 3.2mmol/L (3.5-5.1) 3.5mmol/L (3.5-5.1) Chloride Level 103mmol/L (98-107) 102mmol/L (98-107) Carbon Dioxide Level 26mmol/L (21-32) 23mmol/L (21-32) Anion Gap 6 (6-14) 12 (6-14) Blood Urea Nitrogen 6mg/dL (8-26) 9mg/dL (8-26) Creatinine 1.1mg/dL (0.7-1.3) 1.1mg/dL (0.7-1.3) Estimated GFR (Cockcroft-Gault) 72.1 72.1 Glucose Level 103mg/dL (70-99) 144mg/dL (70-99) Calcium Level 8.5mg/dL (8.5-10.1) 8.7mg/dL (8.5-10.1) Total Bilirubin 4.2mg/dL (0.2-1.0) 1.9mg/dL (0.2-1.0) Direct Bilirubin 2.7mg/dL (0.0-0.2) Aspartate Amino Transf (AST/SGOT) 106U/L (15-37) 54U/L (15-37) Alanine Aminotransferase (ALT/SGPT) 458U/L (16-63) 327U/L (16-63) Alkaline Phosphatase 155U/L (46-116) 177U/L (46-116) Total Protein 7.0g/dL (6.4-8.2) 7.6g/dL (6.4-8.2) Albumin 3.4g/dL (3.4-5.0) 3.4g/dL (3.4-5.0) BUN/Creatinine Ratio 8 (6-20) Albumin/Globulin Ratio 0.8 (1.0-1.7) Laboratory Tests Test 07/19/16 07:35 Sodium Level 137mmol/L (136-145) Potassium Level 3.5mmol/L (3.5-5.1) Chloride Level 102mmol/L (98-107) Carbon Dioxide Level 23mmol/L (21-32) Anion Gap 12 (6-14) Blood Urea Nitrogen 9mg/dL (8-26) Creatinine 1.1mg/dL (0.7-1.3) Estimated GFR (Cockcroft-Gault) 72.1 BUN/Creatinine Ratio 8 (6-20) Glucose Level 144mg/dL (70-99) Calcium Level 8.7mg/dL (8.5-10.1) Total Bilirubin 1.9mg/dL (0.2-1.0) Aspartate Amino Transf (AST/SGOT) 54U/L (15-37) Alanine Aminotransferase (ALT/SGPT) 327U/L (16-63) Alkaline Phosphatase 177U/L (46-116) Total Protein 7.6g/dL (6.4-8.2) Albumin 3.4g/dL (3.4-5.0) Albumin/Globulin Ratio 0.8 (1.0-1.7) Microbiology 07/16/16 Urine Culture - Final, Complete 07/16/16 Urine Culture Result 1 (SABI) - Final, Complete Medications Current Medications Fentanyl Citrate 50 mcg 50 mcg PRN Q15MIN PRN IV PAIN GREATER THAN 3/10 Last administered on 07/16/16 05:18; Start 07/16/16 at 03:00; Stop 07/16/16 at 07:00; Status DC Sodium Chloride (Iv Sodium Chloride 0.9% 1000ml Bag) 1,000 ml @ 1,000 mls/hr Q1H IV Last administered on 07/16/16 03:34; Start 07/16/16 at 03:30; Stop at 04:29; Status DC Ondansetron HCl (Zofran) 4 mg 1X ONCE IV Last administered on 07/16/16 03:34; Start 07/16/16 at 03:30; Stop 07/16/16 at 03:31; Status DC Iohexol (Omnipaque 300 Mg/ml) 75 ml 1X ONCE IV Last administered on 07/16/16 04:44; Start 07/16/16 at 04:30; Stop 07/16/16 at 04:31; Status DC Info (Do NOT chart on this entry -- for MONITORING) 1 each PRN DAILY PRN MC SEE COMMENTS; Start 07/16/16 at 04:30; Stop 07/18/16 at 04:29; Status DC Ondansetron HCl (Zofran) 4 mg 1X ONCE IV Last administered on 07/16/16 05:18; Start 07/16/16 at 05:30; Stop 07/16/16 at 05:31; Status DC Morphine Sulfate 4 mg 4 mg PRN Q15MIN PRN IV/SQ PAIN GREATER THAN 3/10; Start 07/16/16 at 06:15; Stop 07/16/16 at 09:00; Status DC Ceftriaxone Sodium 50 ml @ 100 mls/hr 1X ONCE IV Last administered on 10:00; Start 07/16/16 at 07:00; Stop 07/16/16 at 07:29; Status DC Ceftriaxone Sodium 1 gm/ Sodium Chloride 50 ml @ 100 mls/hr Q24H IV Last administered on 07/19/16 06:07; Start 07/17/16 at 07:00 Metronidazole 100 ml @ 100 mls/hr 1X ONCE IV Last administered on 07/16/16 09 :59; Start 07/16/16 at 07:00; Stop 07/16/16 at 07:59; Status DC Metronidazole (FLAGYL 500Mmg PREMIX) 100 ml @ 100 mls/hr Q8HRS IV Last administered on 07/19/16 05:18; Start 07/16/16 at 14:00 Ondansetron HCl (Zofran) 4 mg PRN Q8HRS PRN IV NAUSEA/VOMITING; Start 07/16/16 at 07:00; Stop 07/16/16 at 13:54; Status DC Morphine Sulfate 4 mg 4 mg PRN Q2HR PRN IV SEVERE PAIN; Start 07/16/16 at 07:00 ; Stop 07/16/16 at 13:55; Status DC Sodium Chloride (Iv Sodium Chloride 0.9% 1000ml Bag) 1,000 ml @ 125 mls/hr Q8H IV Last administered on 07/16/16 21:33; Start 07/16/16 at 06:57; Stop 07/17/16 at 06:56; Status DC Acetaminophen (Tylenol) 650 mg PRN Q4HRS PRN PO FEVER; Start 07/16/16 at 07:00; Stop 07/16/16 at 13:54; Status DC Pantoprazole Sodium (Protonix) 40 mg DAILYAC PO Last administered on 07/19/16 08:20; Start 07/16/16 at 11:00 Acetaminophen (Tylenol) 650 mg PRN Q6HRS PRN PO MILD PAIN / TEMP Last administered on 07/17/16 14:05; Start 07/16/16 at 13:45 Ondansetron HCl (Zofran) 4 mg PRN Q6HRS PRN IV NAUSEA/VOMITING; Start 07/16/16 at 13:45 Morphine Sulfate 2 mg PRN Q2HR PRN IV PAIN Last administered on 07/18/16 18:38 ; Start 07/16/16 at 13:45 Morphine Sulfate 4 mg PRN Q2HR PRN IV PAIN; Start 07/16/16 at 13:45 Enoxaparin Sodium 40 mg 40 mg Q24H SQ Last administered on 07/19/16 12:21; Start 07/17/16 at 10:00 Levofloxacin/ Dextrose (LEVAQUIN 250mg PREMIX) 50 ml @ 50 mls/hr 1X ONCE IV ; Start 07/17/16 at 14:30; Stop 07/17/16 at 14:30; Status DC Potassium Chloride (Klor-Con) 20 meq [id number] PO Last administered on 08:20; Start 07/19/16 at 08:00 Potassium Chloride 40 meq 40 meq 1X ONCE PO Last administered on 07/18/16 17: 01; Start 07/18/16 at 16:00; Stop 07/18/16 at 16:01; Status DC Lactated Ringer's (Iv Lactated Ringers) 1,000 ml @ 30 mls/hr Q24H IV Last administered on 07/18/16 14:15; Start 07/18/16 at 14:15 Iohexol (Omnipaque 300 Mg/ml) 50 ml STK-MED ONCE .ROUTE ; Start 07/18/16 at 14:47 ; Stop 07/18/16 at 14:48; Status DC Throat Lozenges (Cepacol Sore Throat Lozenge) 1 vasu PRN Q2HRS PRN PO SORE THROAT Last administered on 07/18/16 21:45; Start 07/18/16 at 21:45 Active Scripts Active Reported Aspir 81 (Aspirin) 81 Mg Tablet. 1 Tab PO DAILY Prilosec Otc (Omeprazole Magnesium) 20 Mg Tablet. 1 Tab PO DAILY Vitals/I & O Vital Sign - Last 24 Hours 07/18/16 07/18/16 07/18/16 07/18/16 13:57 13:57 15:45 16:00 Temp 98.3 98.0 98.0 98.3 98.0 98.0 Pulse 78 85 79 Resp 18 18 18 B/P 152/83 155/88 Pulse Ox 97 96 96 O2 Delivery Room Air Room Air Room Air 07/18/16 07/18/16 07/18/16 07/18/16 18:38 19:00 20:00 20:00 Temp 98.2 98.2 Pulse 99 Resp 19 18 B/P 149/94 Pulse Ox 96 O2 Delivery Room Air Room Air Room Air 07/18/16 07/19/16 07/19/16 07/19/16 23:00 03:00 07:00 07:30 Temp 98.0 97.9 98.0 98.0 97.9 98.0 Pulse 75 86 67 Resp 18 18 16 B/P 126/92 127/88 125/87 Pulse Ox 94 97 98 O2 Delivery Room Air Room Air Room Air Room Air 07/19/16 11:00 Temp 98.3 98.3 Pulse 65 Resp 16 B/P 139/93 Pulse Ox 97 O2 Delivery Room Air Intake and Output 07/18/16 07/18/16 07/19/16 15:00 23:00 07:00 Intake Total 480 ml 0 ml Balance 480 ml 0 ml LEIDY VITALE MD Jul 19, 2016 12:26
[2016-07-19] MEDS ORDERED: HYDR-971 PO (12:41)
--- NOTE | 2016-07-20 05:53 | DS ---
DATE OF DISCHARGE: 07/19/2016 DISCHARGE DIAGNOSES: 1. 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 2. History of hepatitis C. 3. History of cholecystectomy. 4. Hypertension. 5. Gastroesophageal reflux disease. 6. History of low ceruloplasmin. BRIEF HOSPITAL COURSE: A 45-year-old male patient admitted to the hospital on 07/16/2016 for abdominal pain. Upon arrival, the patient's hepatic panel was elevated, especially bilirubin is 4.2 with an elevation of AST and ALT. He had ultrasound of the abdomen, which showed biliary duct dilatation and mild hyperechoic liver and also he had an ERCP on 07/18/____ by Dr. 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 Postoperatively, the patient's pain has been controlled, tolerable, able to tolerate diet very well and no complications seen. Also his bilirubin level was down to 1.9 with dramatic decrease in liver function tests. Today, he is stable enough to go home and follow up with the primary care doctor and Dr. Navarrete in a couple of weeks. DISCHARGE PHYSICAL EXAMINATION: GENERAL: Alert, oriented x 3. HEART: S1, S2 present. LUNGS: Clear to auscultation. ABDOMEN: Soft, nontender, no organomegaly. EXTREMITIES: No edema. DISCHARGE DISPOSITION: Home. DISCHARGE CONDITION: Stable. FOLLOWUP: With Dr. Navarrete in 1-4 weeks. DISCHARGE MEDICATIONS: Reviewed and reconciled. Please see MRAD. Scripts provided. Total time spent for discharge 32 minutes for patient education, counseling, and coordination of care. LEIDY VITALE MD DR: SHIRLEY/nts JOB#: [id number] / [id number]
== END 2016-07-19 14:30 | disposition home or self-care (01) | DRG 445 ==
LOC: ER 02:37 → 4 NORTH 05:55
PROVIDERS: ADMIT Internal Medicine; ATTEND Internal Medicine
PROC: 0F7C8ZZ Dilation of Ampulla of Vater, Via Natural or Artificial Opening Endoscopic (ICD-10-PCS; 2016-07-18)
PROC: 0FJB8ZZ Inspection of Hepatobiliary Duct, Via Natural or Artificial Opening Endoscopic (ICD-10-PCS; principal; 2016-07-18 15:00)
PROC: BF101ZZ Fluoroscopy of Bile Ducts using Low Osmolar Contrast (ICD-10-PCS; 2016-07-18 15:00)
DX: K83.1 Obstruction of bile duct (principal); R65.10 Systemic inflammatory response syndrome (SIRS) of non-infectious origin without acute organ dysfunction; I10 Essential (primary) hypertension; K21.9 Gastro-esophageal reflux disease without esophagitis; Z79.899 Other long term (current) drug therapy; Z90.49 Acquired absence of other specified parts of digestive tract; Z86.19 Personal history of other infectious and parasitic diseases; Z79.82 Long term (current) use of aspirin
CPT/HCPCS: 36415; 71010; 74177; 74181; 74328; 76705; 80048; 80053; 80074; 80076; 81001; 82390; 83690; 84484; 85007; 85027; 85610; 85730; 87086; 93005; 96361; 96374; 96375; 96376; C1726; G0481; J0690; J0696; J1100; J1650; J2270; J2405; J2704; J2710; J3010; J3490; J7030; J7120; Q9967; 99285-25

== ENCOUNTER 2018-06-02 22:09 | Emergency (ER) | payer SELFPAY ==
[~2018-06-02] VITALS: Ht 180.3 cm; Wt 106.6 kg
[~2018-06-02 22:09] MED LIST: ASPI-482 PO; HYDR-3164 PO; OMEP20TA63 PO
[2018-06-02 22:47] LABS: BASO # 0.1 x10^3/uL (0.0-0.2); BASO % 1 % (0-3); EOS # 0.1 x10^3/uL (0.0-0.7); EOS % 1 % (0-3); HEMATOCRIT 45.9 % (39.0-53.0); HEMOGLOBIN 16.2 g/dL (13.0-17.5); LYMPH % 22 % (24-48); MEAN CORPUSCULAR HEMOGLOBIN 31 pg (25-35); MEAN CORPUSCULAR HGB CONC 35 g/dL (31-37); MEAN CORPUSCULAR VOLUME 89 fL (79-100); MONO # 0.9 x10^3/uL (0.0-1.1); MONO % 10 % (0-9); NEUT % 67 % (31-73); PLATELET COUNT 246 x10^3/uL (140-400); RED BLOOD COUNT 5.19 x10^6/uL (4.30-5.70); RED CELL DISTRIBUTION WIDTH 13.2 % (11.5-14.5); WHITE BLOOD COUNT 9.1 x10^3/uL (4.0-11.0)
--- NOTE | 2018-06-02 22:50 | PHYS DOC ---
Past Medical History Past Medical History: Hypertension Past Surgical History: Cholecystectomy, Other Additional Past Surgical Histo: HERNIA REPAIR Alcohol Use: Occasionally Drug Use: Marijuana Adult General Chief Complaint Chief Complaint: CHEST PAIN HPI HPI Patient is a 47 year old who presents with patient states he chronically has right upper quadrant numbness and fell aching along with right chest numbness and all 18 and numbness that starts in his right hand. States tonight he was sitting at the computer and sitting down lower then the computer and his right hand began to tingling. He states he just started to panic and then the right upper quadrant pain/numbness in right chest tingling started. He denies diaphoresis, nausea, vomiting, headache, dizziness, palpitations. He has a history of hypertension and high cholesterol and smokes a gram of marijuana every day. He states he takes no medications. Review of Systems Review of Systems Constitutional: Denies fever or chills [] Eyes: Denies change in visual acuity, redness, or eye pain [] HENT: Denies nasal congestion or sore throat [] Respiratory: Denies cough or shortness of breath [] Cardiovascular: Right-sided chest numbness GI: Right upper quadrant abdominal numbness/pain, denies nausea, vomiting, bloody stools or diarrhea [] : Denies dysuria or hematuria [] Musculoskeletal: Hand numbness. Denies back pain or joint pain [] Integument: Denies rash or skin lesions [] Neurologic: Denies headache, focal weakness or sensory changes [] Endocrine: Denies polyuria or polydipsia [] All other systems were reviewed and found to be within normal limits, except as documented in this note. Current Medications Current Medications Current Medications Medications (Trade) Dose Ordered Sig/Cristiana Start Time Stop Time Status Last Admin Dose Admin Aspirin (Jason Aspirin) 325 mg 1X ONCE 06/02/18 23:00 06/02/18 23:01 DC 06/02/18 22:51 325 MG Info (CONTRAST GIVEN -- Rx MONITORING) 1 each PRN DAILY PRN 06/03/18 00:30 06/05/18 00:29 Iohexol (Omnipaque 300 Mg/ml) 60 ml 1X ONCE 06/03/18 00:30 06/03/18 00:31 DC 06/03/18 01:00 60 ML Sodium Chloride 1,000 ml @ 1,000 mls/hr 1X ONCE 06/02/18 23:00 06/02/18 23:59 DC 06/02/18 22:51 1,000 MLS/HR Allergies Allergies Allergies Coded Allergies Type Severity Reaction Last Updated Verified No Known Drug Allergies 07/18/16 No Physical Exam Physical Exam Constitutional: Well developed, well nourished, no acute distress, non-toxic appearance. [] HENT: Normocephalic, atraumatic, bilateral external ears normal, oropharynx moist, no oral exudates, nose normal. [] Eyes: PERRLA, EOMI, conjunctiva normal, no discharge. [] Neck: Normal range of motion, no tenderness, supple, no stridor. [] Cardiovascular:Heart rate regular rhythm, no murmur [] Lungs & Thorax: Bilateral breath sounds clear to auscultation [] Abdomen: Bowel sounds normal, soft, no tenderness, no masses, no pulsatile masses. [] Skin: Warm, dry, no erythema, no rash. [] Back: No tenderness, no CVA tenderness. [] Extremities: No tenderness, no cyanosis, no clubbing, ROM intact, no edema. [] Neurologic: Alert and oriented X 3, normal motor function, normal sensory function, no focal deficits noted. [] Psychologic: Affect normal, judgement normal, mood normal. [] Current Patient Data Vital Signs Vital Signs Date Time Temp Pulse Resp B/P (MAP) Pulse Ox O2 Delivery O2 Flow Rate FiO2 06/02/18 23:05 94 16 142/83 (102) 98 Room Air 06/02/18 22:15 98.2 98.2 Lab Values Laboratory Tests Test 06/02/18 22:39 06/02/18 23:45 06/03/18 00:25 White Blood Count 9.1 x10^3/uL (4.0-11.0) Red Blood Count 5.19 x10^6/uL (4.30-5.70) Hemoglobin 16.2 g/dL (13.0-17.5) Hematocrit 45.9 % (39.0-53.0) Mean Corpuscular Volume 89 fL (79-100) Mean Corpuscular Hemoglobin 31 pg (25-35) Mean Corpuscular Hemoglobin Concent 35 g/dL (31-37) Red Cell Distribution Width 13.2 % (11.5-14.5) Platelet Count 246 x10^3/uL (140-400) Neutrophils (%) (Auto) 67 % (31-73) Lymphocytes (%) (Auto) 22 % (24-48) L Monocytes (%) (Auto) 10 % (0-9) H Eosinophils (%) (Auto) 1 % (0-3) Basophils (%) (Auto) 1 % (0-3) Neutrophils # (Auto) 6.0 x10^3uL (1.8-7.7) Lymphocytes # (Auto) 2.0 x10^3/uL (1.0-4.8) Monocytes # (Auto) 0.9 x10^3/uL (0.0-1.1) Eosinophils # (Auto) 0.1 x10^3/uL (0.0-0.7) Basophils # (Auto) 0.1 x10^3/uL (0.0-0.2) Sodium Level 140 mmol/L (136-145) Potassium Level 4.4 mmol/L (3.5-5.1) Chloride Level 105 mmol/L (98-107) Carbon Dioxide Level 25 mmol/L (21-32) Anion Gap 10 (6-14) Blood Urea Nitrogen 13 mg/dL (8-26) Creatinine 1.3 mg/dL (0.7-1.3) Estimated GFR (Cockcroft-Gault) 58.9 BUN/Creatinine Ratio 10 (6-20) Glucose Level 107 mg/dL (70-99) H Calcium Level 8.7 mg/dL (8.5-10.1) Total Bilirubin 0.4 mg/dL (0.2-1.0) Aspartate Amino Transferase (AST) 21 U/L (15-37) Alanine Aminotransferase (ALT) 49 U/L (16-63) Alkaline Phosphatase 55 U/L (46-116) Troponin I Quantitative 0.020 ng/mL (0.000-0.055) Total Protein 6.7 g/dL (6.4-8.2) Albumin 3.9 g/dL (3.4-5.0) Albumin/Globulin Ratio 1.4 (1.0-1.7) Lipase 164 U/L (73-393) Urine Collection Type Unknown Urine Color Yellow Urine Clarity Clear Urine pH 6.0 Urine Specific Stigler 1.010 Urine Protein Negative mg/dL (NEG-TRACE) Urine Glucose (UA) Negative mg/dL (NEG) Urine Ketones (Stick) Negative mg/dL (NEG) Urine Blood Negative (NEG) Urine Nitrite Negative (NEG) Urine Bilirubin Negative (NEG) Urine Urobilinogen Dipstick 0.2 mg/dL (0.2 mg/dL) Urine Leukocyte Esterase Negative (NEG) Urine RBC 0 /HPF (0-2) Urine WBC 0 /HPF (0-4) Urine Squamous Epithelial Cells Occ /LPF Urine Bacteria 0 /HPF (0-FEW) Urine Mucus Slight /LPF Urine Opiates Screen Neg (NEG) Urine Methadone Screen Neg (NEG) Urine Barbiturates Neg (NEG) Urine Phencyclidine Screen Neg (NEG) Urine Amphetamine/Methamphetamine Neg (NEG) Urine Benzodiazepines Screen Neg (NEG) Urine Cocaine Screen Neg (NEG) Urine Cannabinoids Screen Pos (NEG) Urine Ethyl Alcohol Neg (NEG) Laboratory Tests 06/02/18 22:39 Laboratory Tests 06/02/18 23:45 EKG EKG Sinus and no STEMI[] Interpretation Time: [address] Davis Radiology/Procedures Radiology/Procedures [] Impressions: [address] [id number] IMAGING REPORT Signed PATIENT: DUYEN MOCTEZUMA ACCOUNT: [id number] : 1970 LOCATION: ER AGE: 47 SEX: M EXAM STATUS: REG ER ORD. PHYSICIAN: FEI EVANS APRN REASON: chest pain PROCEDURE: CHEST PA & LATERAL Chest PA and lateral 06/02/2018. Reason for exam: Chest pain. Comparison is made with a study of 07/16/2016. No infiltrate or effusion is seen. Heart size and pulmonary vascularity appear normal. IMPRESSION: No acute disease. Electronically signed by: Ousmane Irvin Jr., MD (06/02/2018 11:30 PM) [facility] DICTATED and SIGNED BY: OUSMANE IRVIN Jr, MD DATE: 06/02/[address] [id number] IMAGING REPORT Signed PATIENT: DUYEN MOCTEZUMA ACCOUNT: [id number] : 1970 LOCATION: ER AGE: 47 SEX: M EXAM STATUS: REG ER ORD. PHYSICIAN: FEI EVANS APRN REASON: RUQ pain 13 PROCEDURE: CT ABD PELV W/ IV CONTRST ONLY CT abdomen and pelvis with IV contrast 06/03/2018. Reason for exam: Upper mid abdominal pain. CT images were obtained through the abdomen and pelvis using an infusion of 75 mL Omnipaque 300. No oral contrast was given. Exposure: One or more of the following individualized dose reduction techniques were utilized for this examination: 1. Automated exposure control 2. Adjustment of the mA and/or kV according to patient size 3. Use of iterative reconstruction technique. Comparison is made with a prior study of 07/16/2016. FINDINGS: The lung bases are clear. The liver and spleen are homogeneous in density and normal in configuration. The biliary tree appears less dilated than on the prior study. Both kidneys enhance with contrast. No mass or obstruction is seen. The adrenal glands are not enlarged. The pancreas appears normal. No retroperitoneal or mesenteric adenopathy is seen. There is no apparent abdominal mass or inflammatory process. Images through the pelvis show no abnormality of the distal ureters or bladder. No pelvic or inguinal adenopathy is seen. There is no apparent pelvic mass or inflammatory process. A normal appendix is shown arising from the cecum. IMPRESSION: No acute abnormality. Electronically signed by: Ousmane Irvin Jr., MD (06/03/2018 1:17 AM) [facility] DICTATED and SIGNED BY: OUSMANE IRVIN Jr, MD DATE: 06/03/18 0114 Course & Med Decision Making Course & Med Decision Making Patient is a 47 year old who presents with patient states he chronically has right upper quadrant numbness and fell aching along with right chest numbness and all 18 and numbness that starts in his right hand. States tonight he was sitting at the computer and sitting down lower then the computer and his right hand began to tingling. He states he just started to panic and then the right upper quadrant pain/numbness in right chest tingling started. He denies diaphoresis, nausea, vomiting, headache, dizziness, palpitations, chest pain, numbness or tingling. He has a history of hypertension and high cholesterol and smokes a gram of marijuana every day. He states he takes no medications. Skin is pink warm and dry. Denies any chest pain or numb this in his hand or chest at this time patient states that he took 3 of his mother's nitros at 2200. She states that it did not help his pain but states that now that he's been here his pain is down to a 3 states that his abdomen is right-sided abdomen feels more like a tense feeling. Patient has no extremity edema. Abdomen is soft and nontender. Heart rate regular without murmur. Sinus rhythm and no STEMI on the EKG. Patient has no focal weaknesses. States drinks a 6 pack of beer a week. 2355: Chest x-ray shows no acute findings, Heart score 2, blood work unremarkable. Urine shows no infection. 0130: CT ABD PELV show no acute findings. Patient to be sent home and to follow up with primary care. Patient also needs to stop smoking marijuana. Dragon Disclaimer Dragon Disclaimer This electronic medical record was generated, in whole or in part, using a voice recognition dictation system. Departure Departure Disposition: HOME, SELF-CARE Condition: STABLE Referrals: NO PCP (PCP) Patient Instructions: Abdominal Pain Additional Instructions: FOLLOW UP WITH A PRIMARY CARE PROVIDER. FEI EVANS CT SCAN SPECIAL PROCEDURES TECHNOLOGIST Jun 02, 2018 22:50
[2018-06-02] MEDS ORDERED: IV NORMAL SALINE 1000ML BAG 1,000 ML IV ONE (23:00)
[2018-06-02] MEDS ORDERED: ASPIRIN 325 MG TABLET PO ONE (23:00)
--- NOTE | 2018-06-02 23:34 | RAD ---
Chest PA and lateral 06/02/2018. Reason for exam: Chest pain. Comparison is made with a study of 07/16/2016. No infiltrate or effusion is seen. Heart size and pulmonary vascularity appear normal. IMPRESSION: No acute disease. Electronically signed by: Robert Irvin Jr., MD (06/02/2018 11:30 PM) [facility]
[2018-06-03 00:03] LABS: CALCIUM 8.7 mg/dL (8.5-10.1); CREATININE 1.3 mg/dL (0.7-1.3); GFR 58.9; POTASSIUM 4.4 mmol/L (3.5-5.1)
[2018-06-03 00:07] LABS: ALBUMIN 3.9 g/dL (3.4-5.0); ALBUMIN/GLOBULIN RATIO 1.4 (1.0-1.7); TOTAL BILIRUBIN 0.4 mg/dL (0.2-1.0); TOTAL PROTEIN 6.7 g/dL (6.4-8.2)
[2018-06-03] MEDS ORDERED: IOHEXOL 300 MG/ML 100ML VIAL. IV ONE (00:30)
[2018-06-03] MEDS ORDERED: CONTRAST GIVEN. MC PRN (00:30)
[2018-06-03 00:34] LABS: BILIRUBIN,URINE NEGATIVE (NEG); CLARITY,URINE CLEAR; COLOR,URINE YELLOW; NITRITE,URINE NEGATIVE (NEG); PROTEIN,URINE NEGATIVE (NEG-TRACE); UROBILINOGEN,URINE 0.2 mg/dL (0.2 mg/dL)
[2018-06-03 00:40] LABS: AMPHETAMINE/METHAMPHETAMINE NEG (NEG); BARBITURATES NEG (NEG); BENZODIAZEPINES NEG (NEG); CANNABINOIDS POS (NEG); COCAINE NEG (NEG); METHADONE NEG (NEG); OPIATES NEG (NEG); PHENCYCLIDINE NEG (NEG)
[2018-06-03 00:52] LABS: BACTERIA,URINE 0 /HPF (0-FEW); RBC,URINE 0 /HPF (0-2); SQUAMOUS EPITHELIAL CELL,UR OCC /LPF; WBC,URINE 0 /HPF (0-4)
--- NOTE | 2018-06-03 01:21 | RAD ---
CT abdomen and pelvis with IV contrast 06/03/2018. Reason for exam: Upper mid abdominal pain. CT images were obtained through the abdomen and pelvis using an infusion of 75 mL Omnipaque 300. No oral contrast was given. Exposure: One or more of the following individualized dose reduction techniques were utilized for this examination: 1. Automated exposure control 2. Adjustment of the mA and/or kV according to patient size 3. Use of iterative reconstruction technique. Comparison is made with a prior study of 07/16/2016. FINDINGS: The lung bases are clear. The liver and spleen are homogeneous in density and normal in configuration. The biliary tree appears less dilated than on the prior study. Both kidneys enhance with contrast. No mass or obstruction is seen. The adrenal glands are not enlarged. The pancreas appears normal. No retroperitoneal or mesenteric adenopathy is seen. There is no apparent abdominal mass or inflammatory process. Images through the pelvis show no abnormality of the distal ureters or bladder. No pelvic or inguinal adenopathy is seen. There is no apparent pelvic mass or inflammatory process. A normal appendix is shown arising from the cecum. IMPRESSION: No acute abnormality. Electronically signed by: Robert Irvin Jr., MD (06/03/2018 1:17 AM) [facility]
[2018-06-03 02:00] VITALS: BP 130/83
--- NOTE | 2018-06-03 07:59 | EKG ---
[facility] [address] [place] [address] Test Date: 2018-06-02 Test Time: 22:22:44 Pat Name: DUYEN MOCTEZUMA Department: Room: Gender: M [employer]: : 1970 Requested By: FEI EVANS Order Number: [id number] Reading MD: Measurements Intervals [place] Rate: 90 P: 58 AL: 144 QRS: 26 QRSD: 94 T: 10 QT: 366 QTc: 452 Interpretive Statements SINUS RHYTHM NO SPECIFIC ECG ABNORMALITIES RI6.01 No previous ECG available for comparison
== END 2018-06-03 02:26 | disposition home or self-care (01) ==
LOC: ER 22:09
DX: R10.11 Right upper quadrant pain (principal); R20.0 Anesthesia of skin; I10 Essential (primary) hypertension; Z90.49 Acquired absence of other specified parts of digestive tract; Z98.890 Other specified postprocedural states
CPT/HCPCS: 36415; 71046; 74177; 80053; 80307; 81001; 83690; 84484; 85025; 93005; 99284; J7030; Q9967

== ENCOUNTER 2021-05-04 17:48 | Emergency (ER) | payer SELFPAY ==
[~2021-05-04] VITALS: Ht 182.9 cm; Wt 95.9 kg
[2021-05-04 18:21] VITALS: BP 185/108
[2021-05-04] MEDS ORDERED: AMOX1TAB61 PO (18:38)
--- NOTE | 2021-05-04 18:38 | PHYS DOC ---
Past Medical History Past Medical History: GERD, Hypertension, Other Additional Past Medical Histor: "DIGESTION ISSUES" Past Surgical History: Cholecystectomy, Other Additional Past Surgical Histo: HERNIA REPAIR Smoking Status: Never Smoker Alcohol Use: Occasionally Drug Use: Marijuana General Adult EDM: Chief Complaint: ANIMAL BITE HPI: HPI: Patient is a 50 year old male presents for evaluation after car bite. Bite intially happened on Monday. Located right hand MCP middle finger. Patient states swelling to this area started on monday--- has stayed about the same. Swelling does not extending into the fingers. Td is up to date. Patient not concerned about rabies. Plan to treat patient with augmentin- 1st does in ER. Rx sent to pharmacy. Want patient to follow up in 3 days-- (or sooner if swelling increases) here in the ER or PCP or referred Ortho office. Discussed clinical concerns for flexor tenosynovitis--- signs and symptoms. Review of Systems: Review of Systems: Constitutional: Denies fever or chills. [] Eyes: Denies change in visual acuity. [] HENT: Denies nasal congestion or sore throat. [] Respiratory: Denies cough or shortness of breath. [] Cardiovascular: Denies chest pain or edema. [] GI: Denies abdominal pain, nausea, vomiting, bloody stools or diarrhea. [] : Denies dysuria. [] Musculoskeletal: Denies back pain or joint pain. [] Integument: Denies rash. [positive animal bite positive swelling] Neurologic: Denies headache, focal weakness or sensory changes. [] Endocrine: Denies polyuria or polydipsia. [] Lymphatic: Denies swollen glands. [] Psychiatric: Denies depression or anxiety. [] Heart Score: C/O Chest Pain: N/A Risk Factors: Risk Factors: DM, Current or recent (<one month) smoker, HTN, HLP, family history of CAD, obesity. Risk Scores: Score 0 - 3: 2.5% MACE over next 6 weeks - Discharge Home Score 4 - 6: 20.3% MACE over next 6 weeks - Admit for Clinical Observation Score 7 - 10: 72.7% MACE over next 6 weeks - Early Invasive Strategies Allergies: Allergies: Allergies Coded Allergies Type Severity Reaction Last Updated Verified No Known Drug Allergies 07/18/16 No Physical Exam: PE: Constitutional: Well developed, well nourished, no acute distress, non-toxic appearance. [] HENT: Normocephalic, atraumatic, bilateral external ears normal, oropharynx moist, no oral exudates, nose normal. [] Eyes: PERRLA, EOMI, conjunctiva normal, no discharge. [] Neck: Normal range of motion, no tenderness, supple, no stridor. [] Cardiovascular:Heart rate regular rhythm, no murmur [] Lungs & Thorax: Bilateral breath sounds clear to auscultation [] Abdomen: Bowel sounds normal, soft, no tenderness, no masses, no pulsatile masses. [] Skin: Warm, dry, swelling over MCP on right middle finger, over lying erythema, multiple abrasions to this area, no fluctuant area, significant swelling, no wound drainage. swelling does not extened to fingers. patient able for flex and extend finger no [place] Back: No tenderness, no CVA tenderness. [] Extremities: No tenderness, no cyanosis, no clubbing, ROM intact, no edema. [] Neurologic: Alert and oriented X 3, normal motor function, normal sensory function, no focal deficits noted. [] Psychologic: Affect normal, judgement normal, mood normal. [] Current Patient Data: Vital Signs: Vital Signs Date Time Temp Pulse Resp B/P (MAP) Pulse Ox O2 Delivery O2 Flow Rate FiO2 05/04/21 18:21 98.5 82 18 185/108 (133) 97 Room Air 98.5 EKG: EKG: [] Radiology/Procedures: Radiology/Procedures: [] Course & Med Decision Making: Course & Med Decision Making Pertinent Labs and Imaging studies reviewed. (See chart for details) [] Dragon Disclaimer: Dragon Disclaimer: This electronic medical record was generated, in whole or in part, using a voice recognition dictation system. Departure Departure Impression: Primary Impression: Cat bite of hand Disposition: 01 HOME / SELF CARE / HOMELESS Condition: STABLE Referrals: SUSAN RAMOS DO Patient Instructions: Animal Bite, Cat Scratch Disease Scripts Amoxicillin/Potassium Clav (AUGMENTIN 875-125 TABLET) 1 Each Tablet 1 TAB PO BID for 10 Days, #20 TAB 0 Refills Prov: DIANE CANDELARIA DO 05/04/21 DIANE CANDELARIA DO May 04, 2021 18:38
[2021-05-04] MEDS ORDERED: AMOXICILLIN/K CLAV 875/125MG TABLET. PO ONE (18:45)
== END 2021-05-04 18:49 | disposition home or self-care (01) ==
LOC: ER 17:48
DX: S61.252A Open bite of right middle finger without damage to nail, initial encounter (principal); W55.01XA Bitten by cat, initial encounter; Y93.89 Activity, other specified; Y92.89 Other specified places as the place of occurrence of the external cause; Y99.8 Other external cause status
CPT/HCPCS: 99283